=== PATIENT | male | born 1970 | race Caucasian/White ===

== ENCOUNTER → 2016-04-25 | Outpatient (CLI) | payer OTHER ==
[~2016-04-25] MED LIST: ALBUAER19 INH; ASPI81TA28 PO; ATV5 PO; CHOL100010 PO; ESCI10TA17 PO; FEXO1TAB49 PO; FURO20TA PO; GABA300C19 PO; GLUCTAB18 PO; HYDR-5688 PO; MULTTAB58 PO; ORPH100T PO; RXC5 PO
--- NOTE | 2016-04-25 15:46 | DIAGNOSTIC IMAGING REPORT ---
LEFT FOOT 3 VIEWS CLINICAL HISTORY: Left foot pain. FINDINGS: 3 views of the left foot are obtained. No prior studies are available for comparison at the time of dictation. The skeletal structures are well mineralized. No fracture is seen. Minimal degenerative changes seen at the first metatarsophalangeal joint. The joint spaces of the foot are otherwise preserved. A large dorsal calcaneal enthesophyte is noted. A small os trigonum is suspected. There is a large calcification identified posterior to the base of the fifth metatarsal which measures up to 2.0 cm and likely represents a large os peroneum. The overlying soft tissues are within normal limits. IMPRESSION: 1. Minimal degenerative change as above. No acute bony abnormality is seen. 2. There is a large calcification seen posterior to the base of the fifth metatarsal is typical in appearance for a large os peroneum. Electronically signed by: Louie Pleitez M.D. 04/25/2016 3:45 PM Dictated Date/Time: 04/25/2016 3:42 PM
--- NOTE | 2016-04-25 15:51 | DIAGNOSTIC IMAGING REPORT ---
RIGHT FOOT MIN 3 VIEWS ROUTINE CLINICAL HISTORY: Bilateral foot pain. Pain at bilateral fifth metatarsals. COMPARISON: None FINDINGS: The tarsometatarsal joints are intact. 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 No acute fracture or suspicious lesion is identified on since exam. There is mild arthritis of the right first metatarsophalangeal joint. No erosions are identified. IMPRESSION: 1. No acute fracture or dislocation of the right foot. 2. 2.1 cm ossicle along the lateral aspect of the calcaneocuboid articulation consistent with an os peroneum, a congenital finding. Electronically signed by: Niraj Goldberg M.D. 04/25/2016 3:50 PM Dictated Date/Time: 04/25/2016 3:47 PM
== END | disposition home or self-care (01) ==
LOC: C.RAD 15:03
PROVIDERS: ATTEND Internal Medicine Critical Care Medicine
DX: M79.671 Pain in right foot (principal); M79.672 Pain in left foot

== ENCOUNTER → 2016-12-09 | Outpatient (CLI) | payer OTHER | END | disposition home or self-care (01) | LOC: C.PATHSPEC 16:29 | PROVIDERS: ATTEND Dermatology | DX: L57.0 Actinic keratosis (principal) ==

== ENCOUNTER → 2017-02-02 | Outpatient (CLI) | payer OTHER ==
[~2017-02-02] MED LIST changes: +GABA-1218 PO; -GABA300C19 PO
--- NOTE | 2017-02-02 08:18 | DIAGNOSTIC IMAGING REPORT ---
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 Mild medial compartment joint space narrowing is also noted on the left. Small right knee joint effusion. No acute fracture, dislocation, osteochondral defect or intra-articular loose body. IMPRESSION: 1. No acute fracture or dislocation. 2. Small joint effusion with mild tricompartment degenerative changes about the knee. The above report was generated using voice recognition software. It may contain grammatical, syntax or spelling errors. Electronically signed by: Иван Baer M.D. 02/02/2017 8:16 AM Dictated Date/Time: 02/02/2017 8:15 AM
== END | disposition home or self-care (01) ==
LOC: C.RDSM 10:17
PROVIDERS: ATTEND Physician Assistant
DX: M25.561 Pain in right knee (principal); M25.461 Effusion, right knee

== ENCOUNTER → 2017-03-25 | Outpatient (CLI) | payer OTHER ==
--- NOTE | 2017-03-25 10:07 | DIAGNOSTIC IMAGING REPORT ---
L LOWER EXT JOINT WITHOUT CLINICAL HISTORY: 46 years-old Male with LEFT ANKLE PAIN. Chronic left ankle and left hindfoot pain with history of plantar fasciitis. No acute injury reported. COMPARISON: Left foot radiographs 04/25/2016. TECHNIQUE: Multiplanar, multi sequence MRI of the left ankle was performed without contrast. FINDINGS: LATERAL LIGAMENT COMPLEX: The anterior talofibular ligament is intact and demonstrates mild intermediate T2 signal suggesting chronic sprain. The calcaneofibular ligament and posterior talofibular ligaments are intact. SYNDESMOTIC LIGAMENTS: The anterior-inferior tibiofibular ligament, interosseous membrane and posterior-inferior tibiofibular ligaments are intact. DELTOID LIGAMENT COMPLEX: The superficial and deep components of the deltoid ligament are intact. ANTERIOR TENDONS: The tibialis anterior, extensor hallucis longus and extensor digitorum longus tendons are normal in position, morphology and signal. LATERAL TENDONS: The peroneus longus and brevis tendons are intact. There is a large os peroneum noted measuring up to 1.4 x 2.0 cm. Moderate tendinosis of the peroneus longus. MEDIAL TENDONS: The posterior tibialis, flexor digitorum longus and flexor hallucis longus tendons are intact. PLANTAR FASCIA: There is moderate thickening involving the medial cord plantar fascia with mild surrounding edema nicely seen on image 29 series 7 and image 7 series 5. The lateral cord plantar fascia is mildly thickened. There is no evidence of acute plantar fascial tear or plantar fascial nodules. Very small plantar calcaneal enthesophyte. ACHILLES TENDON: The Achilles tendon is normal in position, morphology and signal. No associated bursitis. SINUS TARSI: There is normal fat signal within the sinus tarsi. The interosseous and cervical ligaments are normal. The navicular-calcaneal (spring) ligament iswithout acute abnormality. TARSAL TUNNEL: There are no obstructing lesions within the tarsal tunnel. BONE MARROW: Bone marrow is normal in signal without evidence of fracture, marrow contusion or marrow occupying lesion. IMPRESSION: 1. Moderate acute on chronic plantar fasciitis without evidence of plantar fascial tear. 2. 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 3. No acute fracture or focal bone marrow edema. The above report was generated using voice recognition software. It may contain grammatical, syntax or spelling errors. Electronically signed by: Иван Baer M.D. 03/25/2017 10:06 AM Dictated Date/Time: 03/25/2017 9:57 AM
== END | disposition home or self-care (01) ==
LOC: C.MRI 09:10
PROVIDERS: ATTEND Podiatrist Foot & Ankle Surgery
DX: M72.2 Plantar fascial fibromatosis (principal)

== ENCOUNTER → 2017-05-13 | Outpatient (CLI) | payer OTHER ==
[~2017-05-13] MED LIST changes: -ALBUAER19 INH; -ASPI81TA28 PO; -ATV5 PO; +BYS5 PO; +CETI10TA84 PO; -CHOL100010 PO; -ESCI10TA17 PO; -FEXO1TAB49 PO; -GABA-1218 PO; -GLUCTAB18 PO; -MULTTAB58 PO; -ORPH100T PO; +RANI150T85 PO; -RXC5 PO
[2017-05-13 14:45] LABS: BASO % 0.5 %; BASO ABS # 0.04 K/uL (0-0.2); EOS % 6.9 %; EOS ABS # 0.53 K/uL (0-0.5); HEMOGLOBIN 15.2 g/dL (14.0-18.0); IG# 0.02 K/uL (0.00-0.02); LYMPH % 34.1 %; LYMPH ABS # 2.61 K/uL (1.2-3.4); MEAN CORPUSCULAR HGB CONC 34.5 g/dl (32-36); MEAN PLATELET VOLUME 10.1 fL (7.4-10.4); MONO % 9.1 %; NEUT % 49.1 %; NEUT ABS # 3.76 K/uL (1.4-6.5); PLATELET COUNT 262 K/uL (130-400); RED CELL DISTRIBUTION WIDTH CV 13.2 % (11.5-14.5); RED CELL DISTRIBUTION WIDTH SD 39.6 fL (36.4-46.3); WHITE BLOOD COUNT 7.66 K/uL (4.8-10.8)
[2017-05-13 14:53] LABS: ALBUMIN 3.9 gm/dl (3.4-5.0); ALT/SGPT 28 U/L (12-78); BLOOD UREA NITROGEN 18 mg/dl (7-18); CARBON DIOXIDE 27 mmol/L (21-32); CHOLESTEROL 184 mg/dl (0-200); CREATININE 0.97 mg/dl (0.60-1.40); GLUCOSE 103 mg/dl (70-99); POTASSIUM 3.9 mmol/L (3.5-5.1); SODIUM 139 mmol/L (136-145)
[2017-05-13 14:54] LABS: PTT PATIENT 27.8 SECONDS (21.0-31.0)
[2017-05-13 14:56] LABS: ALKALINE PHOSPHATASE 85 U/L (45-117); AST/SGOT 19 U/L (15-37); LDL CHOLESTEROL CALCULATED 107 mg/dl; TOTAL PROTEIN 7.4 gm/dl (6.4-8.2)
== END | disposition home or self-care (01) ==
LOC: C.LAB1850 12:42
PROVIDERS: ATTEND Internal Medicine Pulmonary Disease
DX: Z01.818 Encounter for other preprocedural examination (principal); J45.909 Unspecified asthma, uncomplicated; R73.09 Other abnormal glucose; E78.5 Hyperlipidemia, unspecified

== ENCOUNTER → 2017-05-18 | Day surgery (SDC) | payer OTHER ==
[2017-04-16 15:23] VITALS: Ht 190.5 cm; Wt 136.4 kg
[~2017-05-18] VITALS: Ht 190.5 cm; Wt 136.4 kg
[~2017-05-18] MED LIST changes: +ATROPINE SULFATE 0.1 MG/ML 5ML SYR IV PRN; +BUPIVACAINE 0.5 % 5 MG/1 ML MPF 30ML VIAL ONE; +BUPIVACAINE 0.5 % 5 MG/1 ML PF 10ML VIAL ONE; +CEFAZOLIN 3000MG IV PUSH 22.5 ML IV SCH; +CLINDAMYCIN 600 MG/54 ML D5W IV SCH; +CLINDAMYCIN 600MG IV SCH; +CLINDAMYCIN PHOS 150 MG/ML 2 ML VIAL ONE; +EpHEDrine SULFATE INJ 50 MG/ML AMP IV PRN; +FENTANYL CITRATE INJ 50 MCG/1 ML 2 ML VIAL IV PRN; +FENTANYL CITRATE INJ 50 MCG/1 ML 2 ML VIAL ONE; +HYDROCODONE/ACETAMIN 5/325MG TAB PO PRN; +LACTATED RINGER'S 1000ML 1,000 ML IV SCH; +LIDOCAINE HCL 1% 20 ML VIAL ONE; +LIDOCAINE HCL 2% 2 ML VIAL (20MG/ML) ONE; +MIDAZOLAM HCL 1 MG/ML 2ML VIAL ONE; +ONDANSETRON INJ 2 MG/ML 2 ML VIAL IV PRN; +PROPOFOL IV EMULSION 10 MG/ML 20 ML VIAL IV ONE; +SODIUM CHLORIDE 0.9% 1000ML 1,000 ML IV SCH
--- NOTE | 2017-05-18 12:59 | History & Physical Bridge - SC ---
H&P Re-Evaluation Bridge Note: I have examined the patient, reviewed the History & Physical and in the interval since the performance of the History & Physical I have noted the following changes of clinical significance: No changes noted
--- NOTE | 2017-05-18 13:31 | [facility] Post Operative Brief Note ---
Immediate Operative Summary Operative Date May 18, 2017. Pre-Operative Diagnosis Painful plantar fasciitis left foot Post-Operative Diagnosis Same as pre-op diagnosis Procedure(s) Performed Instep plantar fasciotomy left foot Surgeon Dr. Lorne Block Manager Wholesale Surgeon(s) None Estimated Blood Loss 2 mL Findings Consistent with Post-Op Diagnosis Specimens None Drains None Anesthesia Type MAC Complication(s) none Disposition Accompanied Pt To Recovery: no Disposition: Recovery Room / PACU
--- NOTE | 2017-05-18 13:35 | Discharge Instructions-SurgCtr ---
Discharge Instructions Date of Service May 18, 2017. Visit Reason for Visit: Plantar Fascial Fibromatosis Discharge Discharge Diagnosis / Problem: Plantar fascial fibromatosis left foot Discharge Goals Goal(s): Decrease discomfort, Improve function Activity Recommendations Activity Limitations: as noted below Shower/Bathe: keep incision dry Weightbearing Status: Left partial Limit weight bearing. Rest, ice, elevate. Anesthesia . Post Anesthesia Instructions: If you have had General Anesthesia or IV Sedation: * Do not drive today. * Resume driving when surgeon permits. * Do not make important decisions or sign legal documents today. * Call surgeon for: 1. Temperature elevations greater than 101 degrees F. 2. Uncontrollable pain. 3. Excessive bleeding. 4. Persistent nausea and vomiting. 5. Medication intolerance (nausea, vomiting or rash). * For nausea and vomiting use only clear liquids such as: tea, soda, bouillon until nausea subsides, then gradually increase diet as tolerated. * If you have any concerns or questions, call your surgeon's office. If physician is unavailable and it is an emergency, call 911 or go to the nearest emergency room. . Diet Recommendations Home Diet: resume previous diet Procedures Procedures Performed: Instep plantar fasciotomy left foot Pending Studies Studies pending at discharge: no Medical Emergencies . Who to Call and When: Medical Emergencies: If at any time you feel your situation is an emergency, please call 911 immediately. . Non-Emergent Contact Non-Emergency issues call your: Primary Care Provider . . "Provider Documentation" section prepared by Lorne Block. . [place] Drug Monitoring Program Search Results: no issues identified
--- NOTE | 2017-05-18 14:02 | Anesthesia Progress Nt - [facility] ---
Anesthesia Post Op Note Date & Time May 18, 2017 at 14:02 Vital Signs Pain Intensity: 5 Vital Signs Past 12 Hours Date Time Temp Pulse Resp B/P (MAP) Pulse Ox O2 Delivery O2 Flow Rate FiO2 05/18/17 11:43 36.7 54 16 145/80 (101) 97 Room Air Notes Mental Status: alert / awake / arousable, participated in evaluation Pt Amnestic to Procedure: Yes Nausea / Vomiting: adequately controlled Pain: adequately controlled Airway Patency, RR, SpO2: stable & adequate BP & HR: stable & adequate Hydration State: stable & adequate Anesthetic Complications: no major complications apparent
--- NOTE | 2017-05-18 14:55 | [facility] Operative Report ---
Operative Report Operative Date May 18, 2017. Pre-Operative Diagnosis Painful plantar fasciitis left foot Post-Operative Diagnosis Same as pre-op diagnosis Procedure(s) Performed Instep plantar fasciotomy left foot Surgeon Dr. Lorne Block Bobtail Driver Surgeon(s) None Estimated Blood Loss 2 mL Specimens None Drains None Anesthesia Type MAC Complication(s) none Disposition no Recovery Room / PACU Indications Patient is a 56 year old male with significant past medical history of hypertension, gastroesophageal reflux disorder, who presented to our office with the chief complaint of left heel pain. Patient has been conservatively treated over the past year without success. He has attempted custom inserts, shoe gear modification, oral anti-inflammatories, stretching exercises, injection therapy, night splints, and physical therapy, all of which have failed to alleviate his symptoms. MRI was obtained of his left foot which demonstrated moderate thickening of the medial band of plantar fascia. Patient is in agreement and requests to proceed with instep plantar fasciotomy left foot. The perioperative indications, planned procedure, possible benefits, risks , complications, and anticipated healing time and management were discussed in detail with the patient. He understands and elects to proceed with surgery at this time. All consents have been signed. No guarantees were made. All questions have been answered to the patient's satisfaction. Medical clearance has been obtained by the patients primary care physician. Description of Procedure Under mild sedation the patient was brought into the Operating Room and placed on the Operating Room table in the supine position. Final verification of the patient, surgery, and limb designation was performed via the time-out procedure. A pneumatic ankle tourniquet was then placed on the patients left ankle. IV local sedation was then initiated by the anesthesia team. Local block was then administered to the operative site of the right foot consisting of 10 cc of a 1:1 mixture of 1% lidocaine plain and 0.5% bupivacaine plain.The left foot was then scrubbed, prepped, and draped in the usual aseptic manner. An Esmarch bandage was utilized to exsanguinate the patients left foot and the pneumatic ankle tourniquet was then inflated to 250 mmHG. Attention was then directed to the plantar aspect of the left foot where a 3 cm transverse incision was made slightly distal to the heel pad as it sloped into the arch following the skin lines. An incision was made using a #15 blade overlying the medial and central band of the plantar fascia. The incision was then deepened until the fascial bands were visualized. The subcutaneous tissue was spread using a hemostat and then a weitlaner retractor was inserted to allow better visualization of the fascial bands. The toes were then held in a dorsiflexed position. Following adequate visualization of the medial and central plantar fascial bands, they were transected using a #15 blade. The surgical site was then explored for any remaining fibers; none were appreciated. The wound was flushed using copious amounts of sterile saline. The skin was reapproximated using #3-0 nylon in a horizontal mattress fashion. A postoperative injection was given near the incision site and the incision was dressed with xeroform, 4x4s and kerlix. At this time the pneumatic ankle tourniquet was deflated and a prompt hyperemic response was noted to all digits of the left foot. The patient tolerated the procedure and anesthesia well and was transferred to the Recovery Room with vital signs stable and vascular status intact. Following a period of postoperative monitoring, the patient will be discharged home with written and postoperative instructions. Patient's intraoperative and postoperative disposition was discussed with the family in the postoperative consultation area. I attest to the content of the Intraoperative Record and any orders documented therein. Any exceptions are noted below.
== END | disposition home or self-care (01) ==
LOC: X.SURG 11:27
PROVIDERS: ATTEND Podiatrist Foot & Ankle Surgery
DX: M72.2 Plantar fascial fibromatosis (principal); M19.90 Unspecified osteoarthritis, unspecified site; J45.909 Unspecified asthma, uncomplicated; E66.8 Other obesity; G47.30 Sleep apnea, unspecified; Z82.61 Family history of arthritis; Z83.79 Family history of other diseases of the digestive system; Z80.42 Family history of malignant neoplasm of prostate; Z82.49 Family history of ischemic heart disease and other diseases of the circulatory system; Z83.3 Family history of diabetes mellitus; Z82.3 Family history of stroke; Z68.37 Body mass index [BMI] 37.0-37.9, adult

== ENCOUNTER → 2017-07-29 | Outpatient (CLI) | payer OTHER ==
[~2017-07-29] MED LIST changes: -ATROPINE SULFATE 0.1 MG/ML 5ML SYR IV PRN; -BUPIVACAINE 0.5 % 5 MG/1 ML MPF 30ML VIAL ONE; -BUPIVACAINE 0.5 % 5 MG/1 ML PF 10ML VIAL ONE; -CEFAZOLIN 3000MG IV PUSH 22.5 ML IV SCH; -CLINDAMYCIN 600 MG/54 ML D5W IV SCH; -CLINDAMYCIN 600MG IV SCH; -CLINDAMYCIN PHOS 150 MG/ML 2 ML VIAL ONE; -EpHEDrine SULFATE INJ 50 MG/ML AMP IV PRN; -FENTANYL CITRATE INJ 50 MCG/1 ML 2 ML VIAL IV PRN; -FENTANYL CITRATE INJ 50 MCG/1 ML 2 ML VIAL ONE; -HYDR-5688 PO; -HYDROCODONE/ACETAMIN 5/325MG TAB PO PRN; -LACTATED RINGER'S 1000ML 1,000 ML IV SCH; -LIDOCAINE HCL 1% 20 ML VIAL ONE; -LIDOCAINE HCL 2% 2 ML VIAL (20MG/ML) ONE; -MIDAZOLAM HCL 1 MG/ML 2ML VIAL ONE; -ONDANSETRON INJ 2 MG/ML 2 ML VIAL IV PRN; -PROPOFOL IV EMULSION 10 MG/ML 20 ML VIAL IV ONE; -SODIUM CHLORIDE 0.9% 1000ML 1,000 ML IV SCH
--- NOTE | 2017-07-29 09:48 | DIAGNOSTIC IMAGING REPORT ---
L WRIST MIN 3 VIEWS ROUTINE, L HAND MIN 3 VIEWS ROUTINE HISTORY: 46 years-old Male M25.539 Pain, wrist [id number] acute left hand and wrist pain COMPARISON: None available TECHNIQUE: 4 views of the left wrist and 3 views of the left hand FINDINGS: WRIST: No acute fracture, dislocation, significant degenerative changes or opaque foreign body. Mild dorsal wrist soft tissue swelling. HAND: Minimal osteoarthritis about the first carpal metacarpal joint. No acute fracture, dislocation or opaque foreign body. Mild dorsal wrist soft tissue swelling. Minimal degenerative changes about the third DIP joint. IMPRESSION: Mild dorsal wrist soft tissue swelling without acute fracture or dislocation. The above report was generated using voice recognition software. It may contain grammatical, syntax or spelling errors. Electronically signed by: Иван Baer M.D. 07/29/2017 9:47 AM Dictated Date/Time: 07/29/2017 9:44 AM
--- NOTE | 2017-07-29 09:49 | DIAGNOSTIC IMAGING REPORT ---
L WRIST MIN 3 VIEWS ROUTINE, L HAND MIN 3 VIEWS ROUTINE HISTORY: 46 years-old Male M25.539 Pain, wrist [id number] acute left hand and wrist pain COMPARISON: None available TECHNIQUE: 4 views of the left wrist and 3 views of the left hand FINDINGS: WRIST: No acute fracture, dislocation, significant degenerative changes or opaque foreign body. Mild dorsal wrist soft tissue swelling. HAND: Minimal osteoarthritis about the first carpal metacarpal joint. No acute fracture, dislocation or opaque foreign body. Mild dorsal wrist soft tissue swelling. Minimal degenerative changes about the third DIP joint. IMPRESSION: Mild dorsal wrist soft tissue swelling without acute fracture or dislocation. The above report was generated using voice recognition software. It may contain grammatical, syntax or spelling errors. Electronically signed by: Иван Baer M.D. 07/29/2017 9:47 AM Dictated Date/Time: 07/29/2017 9:44 AM
== END | disposition home or self-care (01) ==
LOC: C.RAD1850 09:28
PROVIDERS: ATTEND Internal Medicine Pulmonary Disease
DX: M25.532 Pain in left wrist (principal); M79.642 Pain in left hand

== ENCOUNTER 2018-07-17 01:49 | Inpatient (IN) ==
--- NOTE | 2018-07-17 02:11 | Emergency Department Note ---
History of Present Illness General Chief complaint: Swelling/Edema to Extremity Stated complaint: L LEG SWELLING, SOB, CALF PAIN History of Present Illness Maximum Pain Intensity: 2 This 47-year-old presents to the ER complaining of dyspnea and left lower leg swelling Location: Chest and leg Quality: Throbbing Severity: Mild Duration: Past few days Timing: Started a few days ago Context: D-dimer was high and patient came in Modifying factors: better with nothing; worse with nothing Patient had cataract surgery recently. Patient denies chest pain, abdominal pain, fever, chills, diaphoresis. No history of PE or DVT. Patient does not smoke. No recent travel. Home Medications Home Medications Medication Instructions Recorded Confirmed Type Bystolic 10 mg PO QPM 06/04/18 07/17/18 History cetirizine [Zyrtec] 10 mg PO QPM 06/04/18 07/17/18 History escitalopram oxalate [Lexapro] 10 mg PO QPM 06/04/18 07/17/18 History furosemide [Lasix] 20 mg PO QPM 06/04/18 07/17/18 History multivitamin 1 tab PO QPM 06/04/18 07/17/18 History ranitidine HCl 150 mg PO QPM 06/04/18 07/17/18 History Allergies Allergy/AdvReac Type Severity Reaction Status Date / Time adhesive Allergy Unknown BLISTERS Verified 07/17/18 02:27 cefaclor Allergy Unknown RASH Verified 07/17/18 02:27 moxifloxacin Allergy Unknown "BORDERLINE Verified 07/17/18 02:27 ANAPHYLAXIS" Past Med/Surg History Medical History Depression HTN (hypertension) High triglycerides History of kidney stones Idiopathic urticaria Mild asthma EXERCISE INDUCED - RARELY USES PRN INH Osteoarthritis Sleep apnea CPAP Spinal stenosis Tachycardia Surgical History History of anesthesia reaction PT ASPIRATED DURING LITHOTRIPSY; PROCEDURE TERMINATED EARLY History of arthroscopy of left knee History of arthroscopy of right knee History of cataract surgery RT History of colonoscopy History of discectomy C5-6, C6-7 History of lithotripsy History of repair of pyloric stenosis History of surgery RECTAL FISTULA REPAIR History of surgery LT PLANTAR FASCIA RELEASE History of surgery CERVICAL CORPECTOMY History of tonsillectomy and adenoidectomy History of umbilical hernia repair X 2 Hx of fusion of cervical spine C5-C7; DENIES SIGNIFICANT ROM RESTRICTIONS S/P UPPP (uvulopalatopharyngoplasty) Family History Mother Family history of diabetes mellitus Aunt Family history of diabetes mellitus Uncle Family history of diabetes mellitus Grandmother (Maternal) Family history of diabetes mellitus Grandfather (Maternal) Family history of diabetes mellitus Family/Other History of anesthesia reaction NEPHEW - PT UNSURE OF REACTION Social History Preferred Language: Persian Communication Ability: Effective Beliefs That Will Affect Care: None Current Living Situation: Spouse Feels Safe at Home: Yes Smoking Status: Never smoker Second Hand Exposure: No Hx Alcohol Use: No Hx Substance Use: No Review of Systems All systems reviewed & are unremarkable except as noted in HPI & below Physical Exam Vital Signs Vital Signs - 24 hr 07/17/18 01:54 07/17/18 02:20 Temperature 36.9 C Temperature Source Oral Sepsis Recent Fever Within 48 Hours No Sepsis Action Taken by Nursing No Action Required Pulse Rate 48 L 50 L Respiratory Rate 20 Blood Pressure 134/78 Blood Pressure Mean 96 Blood Pressure Position Sitting Pulse Oximetry 97 98 Oxygen Delivery Method Room Air Room Air VITALS: Vitals are noted on the nurse's note and reviewed by myself. Vital signs stable. GENERAL: Pleasant male, in no acute distress, nondiaphoretic, well-developed well-nourished. SKIN: The skin was without rashes, or bruising. There is no tenting of the skin. Capillary reflex less than 2 seconds. HEAD: Normocephalic atraumatic. EARS: External auditory canals clear EYES: Pupils equal round and reactive to light and accommodation. Conjunctivae without injection, sclerae without icterus. NOSE: Patent, turbinates without inflammation or discharge. MOUTH: Mucous membranes moist. Pharynx without erythema or exudate. Uvula midline. Airway patent. Tongue does not deviate. NECK: Supple without nuchal rigidity. No lymphadenopathy. No thyromegaly. Cervical spine is nontender. No JVD. HEART: Regular rate and rhythm LUNGS: Clear to auscultation bilaterally without wheezes, rales or rhonchi. No retractions or accessory muscle use. ABDOMEN: Positive bowel sounds x 4. Normal tympanic percussion. Soft, nontender, without masses or organomegaly. Ny sign negative. No guarding or rebound tenderness. No CVA tenderness MUSCULOSKELETAL: No muscle atrophy noted. Left lower leg slightly erythematous and edematous with some mild calf tenderness. Pedal pulses +2 equal and present bilaterally. NEURO: Patient was alert and oriented to person place and time. Normal sensation to light and sharp touch. No focal neurological deficits. Course Administered Medications Ioversol (Optiray 320 125ml) 118 ml IV ONCE PRN PRN Reason: Interaction Checking Stop: 07/21/18 02:58 Last Admin: 07/17/18 03:00 Dose: 1 ml Documented by: [id number] Medical Decision Making Medical Records Attestation: I reviewed the patient's medical records. Home Medications Current Medication List: was personally reviewed by me Laboratory Data Attestation: I reviewed the patient's lab results. Result diagrams: 07/17/18 02:16 07/17/18 02:16 Lab Results 07/17/18 07/17/18 07/17/18 Range/Units 02:16 02:16 02:17 WBC 6.82 (4.8-10.8) K/uL RBC 4.78 (4.7-6.1) M/uL Hgb 13.9 L (14.0-18.0) g/dL POC Hgb (14.0-18.0) g/dl Hct 40.3 L (42-52) % POC Hct (42-52) % MCV 84.3 (80-100) fL MCH 29.1 (25-34) pg MCHC 34.5 (32-36) g/dL RDW Std Deviation 40.5 (36.4-46.3) fL RDW Coeff of Marcos 13.4 (11.5-14.5) % Plt Count 240 (130-400) K/uL MPV 9.5 (7.4-10.4) fL Immature Gran % (Auto) 0.4 % Neut % (Auto) 51.7 % Lymph % (Auto) 30.6 % Camas % (Auto) 10.6 % Eos % (Auto) 6.3 % Baso % (Auto) 0.4 % Immature Gran # (Auto) 0.03 H (0.00-0.02) K/uL Neut # (Auto) 3.52 (1.4-6.5) K/uL Lymph # (Auto) 2.09 (1.2-3.4) K/uL Camas # (Auto) 0.72 H (0.11-0.59) K/uL Eos # (Auto) 0.43 (0-0.5) K/uL Baso # (Auto) 0.03 (0-0.2) K/uL PT 10.7 (9.0-12.0) Seconds INR 1.0 (0.9-1.1) APTT 27.1 (21.0-31.0) Seconds PTT Ratio 1.0 POC Sodium (135-144) mEq/L Sodium 141 (136-145) mmol/L POC Potassium (3.3-5.0) mEq/L Potassium 3.7 (3.5-5.1) mmol/L POC Chloride (101-112) mEq/L Chloride 108 H (98-107) mmol/L Carbon Dioxide 27 (21-32) mmol/L POC Total CO2 (24-31) mEq/l Anion Gap 6.0 (3-11) POC Anion Gap (16-25) mmol/L POC BUN (7-18) mg/dl BUN 31 H (7-18) mg/dl Creatinine 1.18 (0.6-1.4) mg/dl POC Creatinine (0.6-1.3) mg/dl Est Cr Clr Drug Dosing 117.5 ml/min Est GFR ( Amer) 84.1 Est GFR (Non-Af Amer) 72.5 BUN/Creatinine Ratio 26.3 H (10-20) Glucose 102 H (70-99) mg/dl POC Glucose (other) (70-99) mg/dl Calcium 8.8 (8.5-10.1) mg/dl POC Ioniz Calcium Selin (1.12-1.32) mmol/l Total Bilirubin 0.7 (0.2-1) mg/dl AST 22 (15-37) U/L ALT 32 (12-78) U/L Alkaline Phosphatase 98 (45-117) U/L Troponin I < 0.015 (0-0.045) ng/ml Total Protein 7.2 (6.4-8.2) gm/dl Albumin 3.6 (3.4-5.0) gm/dl Globulin 3.6 (2.5-4.0) gm/dl Albumin/Globulin Ratio 1.0 (0.9-2) 07/17/18 Range/Units 02:24 WBC (4.8-10.8) K/uL RBC (4.7-6.1) M/uL Hgb (14.0-18.0) g/dL POC Hgb 13.6 L (14.0-18.0) g/dl Hct (42-52) % POC Hct 40 L (42-52) % MCV (80-100) fL MCH (25-34) pg MCHC (32-36) g/dL RDW Std Deviation (36.4-46.3) fL RDW Coeff of Marcos (11.5-14.5) % Plt Count (130-400) K/uL MPV (7.4-10.4) fL Immature Gran % (Auto) % Neut % (Auto) % Lymph % (Auto) % Camas % (Auto) % Eos % (Auto) % Baso % (Auto) % Immature Gran # (Auto) (0.00-0.02) K/uL Neut # (Auto) (1.4-6.5) K/uL Lymph # (Auto) (1.2-3.4) K/uL Camas # (Auto) (0.11-0.59) K/uL Eos # (Auto) (0-0.5) K/uL Baso # (Auto) (0-0.2) K/uL PT (9.0-12.0) Seconds INR (0.9-1.1) APTT (21.0-31.0) Seconds PTT Ratio POC Sodium 143 (135-144) mEq/L Sodium (136-145) mmol/L POC Potassium 3.7 (3.3-5.0) mEq/L Potassium (3.5-5.1) mmol/L POC Chloride 104 (101-112) mEq/L Chloride (98-107) mmol/L Carbon Dioxide (21-32) mmol/L POC Total CO2 28 (24-31) mEq/l Anion Gap (3-11) POC Anion Gap 17.0 (16-25) mmol/L POC BUN 29 H (7-18) mg/dl BUN (7-18) mg/dl Creatinine (0.6-1.4) mg/dl POC Creatinine 1.2 (0.6-1.3) mg/dl Est Cr Clr Drug Dosing ml/min Est GFR ( Amer) Est GFR (Non-Af Amer) BUN/Creatinine Ratio (10-20) Glucose (70-99) mg/dl POC Glucose (other) 103 H (70-99) mg/dl Calcium (8.5-10.1) mg/dl POC Ioniz Calcium Selin 1.19 (1.12-1.32) mmol/l Total Bilirubin (0.2-1) mg/dl AST (15-37) U/L ALT (12-78) U/L Alkaline Phosphatase (45-117) U/L Troponin I (0-0.045) ng/ml Total Protein (6.4-8.2) gm/dl Albumin (3.4-5.0) gm/dl Globulin (2.5-4.0) gm/dl Albumin/Globulin Ratio (0.9-2) Imaging Data Attestation: I personally reviewed and interpreted this imaging study as follows: MDM Narrative Prior records/ancillary studies reviewed. Triage Nursing notes reviewed. Additional history obtained from the family. The patient's history was concerning for leg swelling and respiratory difficulties. Differential diagnosis: Etiologies such as infections, DVT, reactive airway disease, pneumonia, pneumothorax, COPD, CHF, cardiac ischemia, pulmonary embolism, musculoskeletal, gastrointestinal, as well as others were entertained. Physical examination: As above. ER treatment provided: Heparin with bolus On reassessment the patient felt better. Diagnostic interpretation by me: The electrocardiogram was negative for acute ischemic or pathologic change. Normal sinus, normal intervals, no acute ST-T wave changes. Impression normal sinus rhythm interpreted by myself I think arrhythmia is unlikely. EKG shows normal sinus rhythm with no interval abnormalities such as QT prolongation or WPW. There are no findings to suggest Brugada syndrome. Cardiac monitoring in the emergency department reveals no tachycardic or bradycardic dysrhythmia. Hypertrophic cardiomyopathy was considered but there are no clear historical elements pointing toward this. EKG is not suggestive. The QRS voltage is not extremely large and there are no suggestive Q waves. The labs revealed negative troponin. Stable platelets D-dimer outpatient was 2200 Imaging studies: If a discrepancy is found between the preliminary and final interpretations of this study, please notify us via our Client Portal at [email or web address] under QA Exams. You can also fax this report with a description of the discrepancy, or include the final report, to our daytime fax number [phone]. If faxing, please indicate the severity of discrepancy using one of the following categories: [ ] 1 - Agree/Informational [ ] 2 - Unlikely to Affect Management [ ] 3 - Possible Eventual Change of Management [ ] 4 - Probable Immediate Change of Management For all other patient related information, please fax us at [phone]. [id number] [facility] Patient: LICHA GUEVARA (Male) Age: 47 MR #: [id number] Status: ER Date: 07/17/18 03:04 Slices: [id number] History: ddimer 2300chest pain Priors: Tech: Vin Frausto @ [phone] Exams: CTA CHEST Contrast: IV Amt: 118 ml optiray Accession Numbers: [id number] Preliminary Findings Only See Final Report For Complete Findings CTA CHEST: There is partial filling defects noted in several subsegmental branches of the right upper lobe, within subsegmental branches of the distal right lower lobe and within proximal and distal subsegmental branches of the left lower lobe. Findings are consistent with multifocal distal pulmonary emboli. No CT evidence for right heart strain. No pericardial effusion. The thoracic aorta is normal in caliber. Paratracheal, subcarinal and hilar lymphadenopathy with left hilar lymph nodes measuring up to 2 cm in short axis diameter. Differential consideration includes reactive process versus lymphoma/lymphoproliferative disorder. However, no axillary or visible intra- abdominal lymphadenopathy identified. Please correlate clinically. Central endobronchial wall thickening may represent reactive airways process no focal consolidation. Scattered dependent ground-glass opacities are presumed dependent atelectasis. No pleural effusion or pneumothorax. Noncalcified 4 mm pulmonary nodule involving the lateral aspect of left upper lobe (series 4; image 157) and 7 mm noncalcified pulmonary nodule noted in the right lower lobe adjacent to the major fissure (series 4; image 114). 4 mm juxtapleural nodule in the right lateral costophrenic margin (series 4; image 88). Follow-up imaging per national criteria guidelines recommended. No acute osseous or significant overlying soft tissue abnormality. Radiologist: Rj Huizar MD PESI Score Age: 47 Male gender: 10 pt History of cancer: 0 Heart failure: 0 Chronic lung disease: 10 pt Pulse =110/min: 0 Systolic blood pressure <100 mmH Respiratory rate =30/min:0 Temperature <36 Celcius:0 Altered mental status: 0 Arterial oxygen saturation <90 percent: 0 Total: 68 Class I Low risk <66 Class II 66 to 85 Class III High risk 86 to 105 Class IV 106 to 125 Class V >125 Consultation: A consultation was placed with the hospitalist. The case was discussed and diagnostics were reviewed. The patient was evaluated in the ER for further treatment. Medicine request heparin with bolus. This appears to be consistent with PEs. Heparin was ordered. Hypercoagulable work-up was ordered. Results reviewed with patient and all questions were answered. Patient will be admitted to medicine for treatment for PEs. By the evaluation outlined above emergent etiologies such as CHF, cardiac ischemia, reactive airway disease, pneumonia, pneumothorax, musculoskeletal, serious bacterial infections, as well as others were deemed relatively unlikely. The pt informed about the findings as listed above. All questions were answered and pleased with the treatment. Case reviewed with my attending The chart was completed utilizing [email or web address] Speech voice recognition software. Grammatical errors, random word insertions, pronoun errors, and incomplete sentences are an occassional consequence of this system due to software limitations, ambient noise, and hardware issues. Any formal questions or concerns about the content, text, or information contained within the body of this dictation should be directly addressed to the physician assistant store manager trainee for clarification. Impression & Plan Pulmonary embolism Critical Care Time I have personally spent greater than 30 minutes of critical care time in the direct management of this patient. This includes bedside care, interpretation of diagnostic studies, and testing, discussion with consultants, patient, and family members, and other required patient management activities. This 30 minutes is in excess of all separately billable procedures. Critical Care Time: Yes Total Critical Care Time: 30 Discharge Plan Visit Data Chief Complaint: Swelling/Edema to Extremity Stated Complaint: L LEG SWELLING, SOB, CALF PAIN ED Provider: Jacqueline Holt ED Midlevel Provider: Martina Galarza Discharge Problem: Pulmonary embolism Patient Disposition: Admitted As Inpatient Condition: Good Forms Stand Alone Forms: My [facility] Prescriptions Prescriptions: No Action multivitamin Tablet 1 tab PO QPM RF: 0 cetirizine [Zyrtec] 10 mg Tablet 10 mg PO QPM RF: 0 ranitidine HCl 150 mg Tablet 150 mg PO QPM RF: 0 furosemide [Lasix] 20 mg Tablet 20 mg PO QPM RF: 0 escitalopram oxalate [Lexapro] 10 mg Tablet 10 mg PO QPM RF: 0 Bystolic 10 mg Tablet 10 mg PO QPM RF: 0 Referrals Referrals: Destin Kramer MD [Primary Care Provider] - Discharge Problem: Pulmonary embolism Qualifiers: Pulmonary embolism type: unspecified Chronicity: acute Acute cor pulmonale presence: without acute cor pulmonale Qualified Code(s): I26.99 - Other pulmonary embolism without acute cor pulmonale
[2018-07-17 02:26] LABS: Basophils # (auto) 0.03 K/uL (0-0.2); Basophils % (auto) 0.4 %; Eosinophils # (auto) 0.43 K/uL (0-0.5); Eosinophils % (auto) 6.3 %; Hematocrit (blood only) 40.3 % (42-52); Hemoglobin 13.9 g/dL (14.0-18.0); Immature Granulocytes # (auto) 0.03 K/uL (0.00-0.02); Immature Granulocytes % (auto) 0.4 %; Lymphocytes # (auto) 2.09 K/uL (1.2-3.4); Lymphocytes % (auto) 30.6 %; Mean Corpuscular Hgb Conc 34.5 g/dL (32-36); Mean Corpuscular Volume 84.3 fL (80-100); Mean Platelet Volume 9.5 fL (7.4-10.4); Monocytes # (auto) 0.72 K/uL (0.11-0.59); Monocytes % (auto) 10.6 %; Neutrophils # (auto) 3.52 K/uL (1.4-6.5); Neutrophils % (auto) 51.7 %; Platelet Count 240 K/uL (130-400); RDW Coefficient of Variation 13.4 % (11.5-14.5); RDW Standard Deviation 40.5 fL (36.4-46.3); Red Blood Count 4.78 M/uL (4.7-6.1); White Blood Count 6.82 K/uL (4.8-10.8)
[2018-07-17 02:37] LABS: iSTAT Creatinine 1.2 mg/dl (0.6-1.3); iSTAT Hemoglobin 13.6 g/dl (14.0-18.0); iSTAT Ionized Calcium 1.19 mmol/l (1.12-1.32); iSTAT Potassium 3.7 mEq/L (3.3-5.0)
[2018-07-17] MEDS ORDERED: OPTIRAY 320 125ml IV PRN (02:59)
[2018-07-17 03:00] LABS: Alanine Aminotransferase 32 U/L (12-78); Albumin Level 3.6 gm/dl (3.4-5.0); Aspartate Aminotransferase 22 U/L (15-37); BUN Creatinine Ratio 26.3 (10-20); Blood Urea Nitrogen 31 mg/dl (7-18); Calcium 8.8 mg/dl (8.5-10.1); Carbon Dioxide 27 mmol/L (21-32); Chloride 108 mmol/L (98-107); Creatinine Clr Calc Pharmacy 117.5 ml/min; Est GFR (African American) 84.1; Est GFR (Non-African American) 72.5; Glucose 102 mg/dl (70-99); Potassium 3.7 mmol/L (3.5-5.1); Sodium 141 mmol/L (136-145)
[2018-07-17 03:05] LABS: Alkaline Phosphatase 98 U/L (45-117); Bilirubin,Total 0.7 mg/dl (0.2-1); Globulin 3.6 gm/dl (2.5-4.0); Total Protein 7.2 gm/dl (6.4-8.2); Troponin I < 0.015 ng/ml (0-0.045)
[2018-07-17 03:41] LABS: Partial Thromboplastin Time 27.1 Seconds (21.0-31.0); Prothrombin Time 10.7 Seconds (9.0-12.0)
[2018-07-17] MEDS ORDERED: HEPARIN 25000 UNIT/500 ML D5W IV ONE (04:05)
[2018-07-17] MEDS ORDERED: Heparin BOLUS **ED Use Only IV STA (04:06)
[2018-07-17] MEDS ORDERED: HEPARIN SOD (PORCINE) 1000 UNIT/ML 10 ML VIAL ONE (04:06)
--- NOTE | 2018-07-17 04:11 | History & Physical Report ---
Date of Service July 17, 2018 Assessment & Plan (1) Pulmonary embolism: Patient with occlusive thrombus of peritoneal and posterior tibial veins as well as multifocal distal pulmonary emboli. He is hemodynamically stable, no respiratory distress, adequate oxygenation on room air, no evidence of right heart strain on EKG or CT. No prior DVT/PE. No trauma or immobility. Patient had cataract surgery performed prior to leg swelling, however, not sure I would definitively call this a "provoked" DVT. Patient has lymphadenopathy in the chest as well as in the femoral area as well, suggested to be reactive. This may be the case, however, concerning for malignancy in setting of a new DVT/PE, anemia. Patient does not endorse any Type B symptoms of malignancy. -Admit to medical floor -Heparin bolus and gtt initiated in ER to continue on floor -Case management consult to assist with NOAC choice -Hypercoag workup sent Present on Admission?: Yes (2) Lymphadenopathy: As mentioned above, patient with LAD noted in chest as well as femoral. May be reactive, however, concern for malignancy in setting of new DVT/PE -Consider surgical consult for lymph node biopsy Present on Admission?: Yes (3) Anemia: Patient with normochromic/normocytic anemia, Hg of 13.9, Hct of 40.3. This is slightly down from prior values of 14.2 and 42.9, respectively on 12/18/17. No active bleeding -Continue to monitor Present on Admission?: Yes (4) Hypertension: Blood pressure well controlled on current medication regimen. Patient is bradycardic at baseline on Bystolic. Denies dizziness, syncope, confusion. -Continue Bystolic -Continue Lasix -Continue to monitor Present on Admission?: Yes (5) Depression: Chronic. Stable -Continue Lexapro Present on Admission?: Yes (6) BRICE on CPAP: CPAP qHS F/E/N - Heplock. Monitor electroltyes and replete as needed, regular diet as tolerated Ppx - Heparin gtt as above. Continue Ranitidine daily at home dose Code - Full per discussion with patient Dispo - Admit to medical floor History of Present Illness Chief Complaint: Pulmonary emboli Primary Care Provider: Destin Kramer MD 47yo C male presenting with bilateral PEs. Patient had cataract surgery in mid June. Shortly after he began experiencing pain in the left posterior calf with associated leg swelling. He had a d-dimer performed today which was positive at 2320. He has some mild chest discomfort and has noted more dyspnea with exertion lately. No dizziness/syncope/palpitations. Patient took 364mg of ASA during the course of the day. No additional complaints at this time. No history of prior clots ER Course: Heparin bolus and gtt Allergies Allergy/AdvReac Type Severity Reaction Status Date / Time adhesive Allergy Unknown BLISTERS Verified 07/17/18 02:27 cefaclor Allergy Unknown RASH Verified 07/17/18 02:27 moxifloxacin Allergy Unknown "BORDERLINE Verified 07/17/18 02:27 ANAPHYLAXIS" Home Medications Home Medications Medication Instructions Recorded Confirmed Type Bystolic 10 mg PO QPM 06/04/18 07/17/18 History cetirizine [Zyrtec] 10 mg PO QPM 06/04/18 07/17/18 History escitalopram oxalate [Lexapro] 10 mg PO QPM 06/04/18 07/17/18 History furosemide [Lasix] 20 mg PO QPM 06/04/18 07/17/18 History multivitamin 1 tab PO QPM 06/04/18 07/17/18 History ranitidine HCl 150 mg PO QPM 06/04/18 07/17/18 History Past Med/Surg History Medical History Depression HTN (hypertension) High triglycerides History of kidney stones Idiopathic urticaria Mild asthma EXERCISE INDUCED - RARELY USES PRN INH Osteoarthritis Sleep apnea CPAP Spinal stenosis Tachycardia Surgical History History of anesthesia reaction PT ASPIRATED DURING LITHOTRIPSY; PROCEDURE TERMINATED EARLY History of arthroscopy of left knee History of arthroscopy of right knee History of cataract surgery RT History of colonoscopy History of discectomy C5-6, C6-7 History of lithotripsy History of repair of pyloric stenosis History of surgery RECTAL FISTULA REPAIR History of surgery LT PLANTAR FASCIA RELEASE History of surgery CERVICAL CORPECTOMY History of tonsillectomy and adenoidectomy History of umbilical hernia repair X 2 Hx of fusion of cervical spine C5-C7; DENIES SIGNIFICANT ROM RESTRICTIONS S/P UPPP (uvulopalatopharyngoplasty) Family History Mother Family history of diabetes mellitus Aunt Family history of diabetes mellitus Uncle Family history of diabetes mellitus Grandmother (Maternal) Family history of diabetes mellitus Grandfather (Maternal) Family history of diabetes mellitus Family/Other History of anesthesia reaction NEPHEW - PT UNSURE OF REACTION Social History Preferred Language: Welsh Communication Ability: Effective Beliefs That Will Affect Care: None Current Living Situation: Spouse Feels Safe at Home: Yes Smoking Status: Never smoker Second Hand Exposure: No Hx Alcohol Use: No Hx Substance Use: No Review of Systems Review of Systems: All systems reviewed & are unremarkable except as noted in HPI & below Patient denies fevers, chills, night sweats, weight loss Patient denies abdominal pain, nausea, vomiting, diarrhea or constipation Physical Exam Physical Exam: General: patient resting comfortably, NAD, non-toxic in appearance, AA&O x 4 Skin: warm, dry, intact, no rashes or lesions HEENT: NC/AT, PERRL, EOMI, anicteric sclera, conjunctiva without injection, external ear normal to inspection and nontender, nares patent, moist mucus membranes, dentition intact, no oropharyngeal lesions, neck supple, trachea midline, no LAD, no thyromegaly, no JVD Heart: +S1/S2, regular, bradycardic at 47bpm, no m/r/g Lungs: equal air entry bilaterally, no rales/rhonchi/wheezes Abd: +BS, soft, NT/ND, no masses/organomegaly/ascites Ext: warm, 2+ pulses in UE/LE bilaterally, no clubbing/cyanosis, trace pitting edema of bilateral LE, L > R, tenderness of left posterior calf Neuro: nonfocal Results & Data Vital Signs (Past 12 Hours) Vital Signs Temp Pulse Resp BP Pulse Ox 07/17/18 02:20 50 L 98 07/17/18 01:54 36.9 C 48 L 20 134/78 97 Laboratory Results Lab Results 07/17/18 07/17/18 07/17/18 Range/Units 02:16 02:16 02:17 WBC 6.82 (4.8-10.8) K/uL RBC 4.78 (4.7-6.1) M/uL Hgb 13.9 L (14.0-18.0) g/dL POC Hgb (14.0-18.0) g/dl Hct 40.3 L (42-52) % POC Hct (42-52) % MCV 84.3 (80-100) fL MCH 29.1 (25-34) pg MCHC 34.5 (32-36) g/dL RDW Std Deviation 40.5 (36.4-46.3) fL RDW Coeff of Marcos 13.4 (11.5-14.5) % Plt Count 240 (130-400) K/uL MPV 9.5 (7.4-10.4) fL Immature Gran % (Auto) 0.4 % Neut % (Auto) 51.7 % Lymph % (Auto) 30.6 % [place] % (Auto) 10.6 % Eos % (Auto) 6.3 % Baso % (Auto) 0.4 % Immature Gran # (Auto) 0.03 H (0.00-0.02) K/uL Neut # (Auto) 3.52 (1.4-6.5) K/uL Lymph # (Auto) 2.09 (1.2-3.4) K/uL [place] # (Auto) 0.72 H (0.11-0.59) K/uL Eos # (Auto) 0.43 (0-0.5) K/uL Baso # (Auto) 0.03 (0-0.2) K/uL PT 10.7 (9.0-12.0) Seconds INR 1.0 (0.9-1.1) APTT 27.1 (21.0-31.0) Seconds PTT Ratio 1.0 POC Sodium (135-144) mEq/L Sodium 141 (136-145) mmol/L POC Potassium (3.3-5.0) mEq/L Potassium 3.7 (3.5-5.1) mmol/L POC Chloride (101-112) mEq/L Chloride 108 H (98-107) mmol/L Carbon Dioxide 27 (21-32) mmol/L POC Total CO2 (24-31) mEq/l Anion Gap 6.0 (3-11) POC Anion Gap (16-25) mmol/L POC BUN (7-18) mg/dl BUN 31 H (7-18) mg/dl Creatinine 1.18 (0.6-1.4) mg/dl POC Creatinine (0.6-1.3) mg/dl Est Cr Clr Drug Dosing 117.5 ml/min Est GFR ( Amer) 84.1 Est GFR (Non-Af Amer) 72.5 BUN/Creatinine Ratio 26.3 H (10-20) Glucose 102 H (70-99) mg/dl POC Glucose (other) (70-99) mg/dl Calcium 8.8 (8.5-10.1) mg/dl POC Ioniz Calcium Eslin (1.12-1.32) mmol/l Total Bilirubin 0.7 (0.2-1) mg/dl AST 22 (15-37) U/L ALT 32 (12-78) U/L Alkaline Phosphatase 98 (45-117) U/L Troponin I < 0.015 (0-0.045) ng/ml Total Protein 7.2 (6.4-8.2) gm/dl Albumin 3.6 (3.4-5.0) gm/dl Globulin 3.6 (2.5-4.0) gm/dl Albumin/Globulin Ratio 1.0 (0.9-2) 07/17/18 Range/Units 02:24 WBC (4.8-10.8) K/uL RBC (4.7-6.1) M/uL Hgb (14.0-18.0) g/dL POC Hgb 13.6 L (14.0-18.0) g/dl Hct (42-52) % POC Hct 40 L (42-52) % MCV (80-100) fL MCH (25-34) pg MCHC (32-36) g/dL RDW Std Deviation (36.4-46.3) fL RDW Coeff of Marcos (11.5-14.5) % Plt Count (130-400) K/uL MPV (7.4-10.4) fL Immature Gran % (Auto) % Neut % (Auto) % Lymph % (Auto) % [place] % (Auto) % Eos % (Auto) % Baso % (Auto) % Immature Gran # (Auto) (0.00-0.02) K/uL Neut # (Auto) (1.4-6.5) K/uL Lymph # (Auto) (1.2-3.4) K/uL [place] # (Auto) (0.11-0.59) K/uL Eos # (Auto) (0-0.5) K/uL Baso # (Auto) (0-0.2) K/uL PT (9.0-12.0) Seconds INR (0.9-1.1) APTT (21.0-31.0) Seconds PTT Ratio POC Sodium 143 (135-144) mEq/L Sodium (136-145) mmol/L POC Potassium 3.7 (3.3-5.0) mEq/L Potassium (3.5-5.1) mmol/L POC Chloride 104 (101-112) mEq/L Chloride (98-107) mmol/L Carbon Dioxide (21-32) mmol/L POC Total CO2 28 (24-31) mEq/l Anion Gap (3-11) POC Anion Gap 17.0 (16-25) mmol/L POC BUN 29 H (7-18) mg/dl BUN (7-18) mg/dl Creatinine (0.6-1.4) mg/dl POC Creatinine 1.2 (0.6-1.3) mg/dl Est Cr Clr Drug Dosing ml/min Est GFR ( Amer) Est GFR (Non-Af Amer) BUN/Creatinine Ratio (10-20) Glucose (70-99) mg/dl POC Glucose (other) 103 H (70-99) mg/dl Calcium (8.5-10.1) mg/dl POC Ioniz Calcium Selin 1.19 (1.12-1.32) mmol/l Total Bilirubin (0.2-1) mg/dl AST (15-37) U/L ALT (12-78) U/L Alkaline Phosphatase (45-117) U/L Troponin I (0-0.045) ng/ml Total Protein (6.4-8.2) gm/dl Albumin (3.4-5.0) gm/dl Globulin (2.5-4.0) gm/dl Albumin/Globulin Ratio (0.9-2) Diagnostic Findings CTA Chest - Per STAT-Rad: There is partial filling defects noted in several subsegmental branches of the right upper loge an ddistal right lower lobe and within proximal and distal subsegmental branches of the LLL. Findings consistent with multifocal distal PE. No CT evidence for right heart strain. No pericardial effusion. Paratracheal, subcarinal and hilar LAD with left hilar LN measuring up to 2cm in short axis diameter. Ddx includes reactive process vers lymphoma/lymphoproliferative disorder. No axillary or intra-abdominal LAD identified. Correlate clinically. Central endobronchial wall thickening may re present reactive airways process. No focal consolidation. Scattered dependent ground-glass opacities are presumed dependent atelectasis. No pleural effusions of PTX. Noncalcified 4mm pulmonary nodule of the lateral aspect of ALEX and 7mm noncalcified pulmonary nodule in RLL adjacent to the major fissure. 4mm juxtapleural nodule in the right lateral costophrenic margin. Followup imaging per national criteria guideline recommended. No acute osseous or significant overlying soft tissue abnormality. Venous doppler - Per STAT-Rad: Occlusive thrombus in the peritoneal and one fo the posterior tibial veins. Thrombus extends superiorly to involve the mid to inferior popliteal vein. The superior margin of the thrombus is partially occlusive with a rounded meniscus type appearance. No extension to involve the left common femoral or femoral veins is noted. No evidence for DVT in the right. Reactive left inguinal lymph nodes. ECG Additional Comments: The study shows sinus bradycardia at 44bpm, SI=011, BDL=043, ZWl=671, nonspecific TW changes Code Status & VTE Plan Code Status FULL VTE Prophylaxis Plan VTE Prophylaxis will be ordered: Yes Critical Care Time Critical Care Time: No (1) Anemia Anemia type: unspecified type Qualified Code(s): D64.9 - Anemia, unspecified (2) Depression Depression Type: unspecified Qualified Code(s): F32.9 - Major depressive disorder, single episode, unspecified (3) Pulmonary embolism Acute cor pulmonale presence: without acute cor pulmonale Chronicity: acute Pulmonary embolism type: unspecified Qualified Code(s): I26.99 - Other pulmonary embolism without acute cor pulmonale (4) Hypertension Hypertension type: essential hypertension Qualified Code(s): I10 - Essential (primary) hypertension
[2018-07-17] MEDS: Heparin Adult STANDARD Wt-Based Dextrose 5% 25,000 units/500 mL IV SCH ×2 (04:48→17:34)
--- NOTE | 2018-07-17 06:22 | Ultrasound Report ---
US venous doppler LE BI HISTORY: Pain. Edema. swelling, recent OR COMPARISON STUDY: None. FINDINGS: Findings consistent with thrombus within the mid to distal popliteal vein. Involvement of t he peroneal veins in one of the Posterior tibial vein is also noted. IMPRESSION: Acute deep venous thrombosis left leg. The above report was generated using voice recognition software. It may contain grammatical, syntax or spelling errors. Electronically signed by: Kamran Esparza M.D. 07/17/2018 6:20 AM
--- NOTE | 2018-07-17 06:35 | CT Scan Report ---
CT angio chest PE protocol CT DOSE: 709.34 mGy.cm HISTORY: Pain. Dyspnea. ddimer 2200, sob, ? PE TECHNIQUE: Multiaxial CT images of the chest were performed following the intravenous administration of contrast to evaluate the pulmonary arteries. Maximal intensity projection images were also obtaine d. A dose lowering technique was utilized adhering to the principles of ALARA. COMPARISON STUDY: None. FINDINGS: The thoracic aorta is normal course and caliber. Pulmonary vasculature demonstrates several second and third order filling defects in the peripheral l katie regions bilaterally. No evidence for main central or saddle pulmonary embolus. Moderate mediastinal and hilar adenopathy. Pretracheal nodes measuring up to 1.7 cm. Bilateral hilar nodes measure to 1.6 cm. Subcarinal lymph nodes measure up to 2 cm. Evaluation of the lung parenchyma shows several small scattered nodules. Right base contains a 5 mm n odule right right infrahilar nodule measures 7 mm. Left midlung nodule image 63 measures 5 mm. Severa l additional 2 to 4 mm nodules are present bilaterally. There are no focal or consolidative infiltrative changes. IMPRESSION: 1. Study is positive for bilateral pulmonary emboli. 2. Moderate mediastinal and hilar adenopathy. 3. Scattered parenchymal nodules as discussed. 4. The mediastinal, hilar, and parenchymal findings should be closely followed to exclude a possibili ty of a density such as lymphoma The above report was generated using voice recognition software. It may contain grammatical, syntax or spelling errors. Electronically signed by: Kamran Esparza M.D. 07/17/2018 6:34 AM
[2018-07-17 07:29] LABS: Magnesium 2.1 mg/dl (1.8-2.4)
[2018-07-17 10:59] LABS: Partial Thromboplastin Ratio 1.9
[2018-07-17 11:04] LABS: Partial Thromboplastin Time 51.3 Seconds (21.0-31.0)
[2018-07-17] MEDS: ACETAMINOPHEN 325 MG TAB PO PRN (16:14)
[2018-07-17] MEDS: ESCITALOPRAM OXALATE 10 MG TAB PO SCH (20:25)
[2018-07-17] MEDS: FUROSEMIDE 20 MG TAB PO SCH (20:25)
[2018-07-17] MEDS: NEBIVOLOL HCL 5 MG TAB PO SCH (20:26)
[2018-07-17] MEDS: CETIRIZINE HCL 10 MG TABLET PO SCH (20:26)
--- NOTE | 2018-07-17 22:12 | Consultation Report ---
DATE OF CONSULTATION: 07/17/2018 REASON FOR CONSULTATION: Mediastinal lymphadenopathy. 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 Dev was in his usual state of health until a couple of weeks ago when he started noticing some swelling in his left lower extremity. He attended his daughter's graduation and walked around [facility] during much of her graduation and noted a "twinge" in his chest and was short of breath, which is unusual for him. Six months ago, Dev was in a walking program where he walked quite a bit and has lost some weight and felt good. He has not been walking as much as of late. The patient had a D-dimer drawn, it was seen to be elevated. He presented to the hospital, has been admitted, and found to have left lower extremity tibial, peroneal, and distal popliteal vein thrombosis. He also underwent a CTA and was found to have some evidence of distal bilateral pulmonary emboli. The patient's CT scan was also significant for marked mediastinal adenopathy. He also has some very small lung nodules, the largest of which measured 7 mm. The patient does not smoke cigarettes. He does not have a cough. He states that he has had night sweats once or twice a month for the last several months which are fairly significant. His weight has been stable. He has no productive cough. He has not had shortness of breath until the episode described above. PAST MEDICAL HISTORY: 1. The patient is a lifetime nonsmoker. 2. Hypertension. 3. Hypertriglyceridemia. 4. Nephrolithiasis. 5. Exercise-induced asthma. 6. Osteoarthritis. 7. Sleep apnea. 8. Spinal stenosis. 9. Recurrent tachycardias. PAST SURGICAL HISTORY: 1. Recent cataract extraction with lens implant. 2. History of fusion of cervical spine. 3. UPPP. 4. History of umbilical hernia repair. 5. Tonsillectomy and adenoidectomy. 6. Plantar fascial release. 7. Repair of rectal fistula. 8. Repair of pyloric stenosis. 9. Lithotripsy. 10. Bilateral knee arthroscopies. MEDICATIONS: 1. Bystolic. 2. Zyrtec. 3. Zantac. 4. Multivitamins. 5. Lasix. 6. Lexapro. ALLERGIES: 1. ADHESIVE TAPE. 2. CECLOR. 3. MOXIFLOXACIN. SOCIAL HISTORY: The patient lives in [place] with his . His daughter just graduated. He does not smoke cigarettes. He is independent in his activities of daily living. He does not use alcohol. FAMILY MEDICAL HISTORY: There is a history of diabetes mellitus in his grandparents, mother, and aunts and uncles. REVIEW OF SYSTEMS: The patient denies any GI or complaints. He has had no neurologic problems. He has had no skin breakdown. He has mild edema in his left lower extremity. He has not had tachycardias, but he has had the chest pain discussed above. He did undergo a stress echocardiogram last year. His vision has been better with his cataract extraction. He has had no hearing impairment. PHYSICAL EXAMINATION: GENERAL: Jamel is a large man standing 6 feet 3 inches tall, weighing in excess of 300 pounds. HEENT: His extraocular movements are intact. He has lens implants. He has no nasolabial flattening. His tongue is midline. His teeth are in good repair. NECK: Thick, but supple. He has no carotid bruits or lymphadenopathy. LUNGS: Actually clear. I do not really hear any wheezing or rhonchi. HEART: He has a regular rate and rhythm of his heart. ABDOMEN: A bit protuberant but soft, nontender. No evidence of organomegaly. EXTREMITIES: He has excellent peripheral pulses. I do not really see edema today, but he apparently had some pretibial edema last night. He has a negative Homans' this morning, but apparently has had some issues with pain in his left lower extremity recently. NEUROLOGIC: He is completely intact. ASSESSMENT AND PLAN: Marked mediastinal adenopathy. I am going to offer him an endobronchial ultrasound on Thursday. I am going to keep him in the hospital on heparin as there is not a good way to anticoagulate him. We discussed the possibilities including lymphoma, sarcoidosis, or other connective tissue disorder, and I told him there is a very low level probability of this being a metastatic cancer. He understands. We will get this set up for 07/19/2018.
[2018-07-18] MEDS: Heparin Adult STANDARD Wt-Based Dextrose 5% 25,000 units/500 mL IV SCH ×2 (05:21→19:59)
[2018-07-18 07:50] LABS: Basophils # (auto) 0.02 K/uL (0-0.2); Basophils % (auto) 0.3 %; Eosinophils # (auto) 0.45 K/uL (0-0.5); Eosinophils % (auto) 5.9 %; Hematocrit (blood only) 40.4 % (42-52); Hemoglobin 14.4 g/dL (14.0-18.0); Immature Granulocytes # (auto) 0.05 K/uL (0.00-0.02); Immature Granulocytes % (auto) 0.7 %; Lymphocytes # (auto) 1.99 K/uL (1.2-3.4); Lymphocytes % (auto) 25.9 %; Mean Corpuscular Hgb Conc 35.6 g/dL (32-36); Mean Corpuscular Volume 82.8 fL (80-100); Mean Platelet Volume 9.2 fL (7.4-10.4); Monocytes # (auto) 0.85 K/uL (0.11-0.59); Monocytes % (auto) 11.1 %; Neutrophils # (auto) 4.32 K/uL (1.4-6.5); Neutrophils % (auto) 56.1 %; Platelet Count 231 K/uL (130-400); RDW Coefficient of Variation 13.5 % (11.5-14.5); RDW Standard Deviation 40.6 fL (36.4-46.3); Red Blood Count 4.88 M/uL (4.7-6.1); White Blood Count 7.68 K/uL (4.8-10.8)
[2018-07-18 08:12] LABS: Partial Thromboplastin Ratio 1.7
[2018-07-18 08:16] LABS: BUN Creatinine Ratio 17.9 (10-20); Calcium 8.8 mg/dl (8.5-10.1); Creatinine Clr Calc Pharmacy 126.7 ml/min; Est GFR (African American) 92.5; Est GFR (Non-African American) 79.8; Potassium 4.1 mmol/L (3.5-5.1)
[2018-07-18 08:45] LABS: Partial Thromboplastin Time 46.8 Seconds (21.0-31.0)
--- NOTE | 2018-07-18 10:01 | Progress Note ---
DATE: 07/18/2018 Jamel Walker was evaluated this morning on 07/18/2018. He has had an uneventful night. He denies chest pain or shortness of breath. He has been ambulating in the hallway. His swelling is improved in his left leg. I have discussed his case with Dr. Lomax. In my opinion, an inferior vena cava filter is not indicated. The clot burden in the mid and distal popliteal is not extensive. In addition, there are no contraindications to anticoagulation. Anticoagulation can be started tomorrow after we do the endobronchial ultrasound. I had a long talk with Mr. Walker about this and we will set this up for tomorrow afternoon. We will stop his heparin drip in the morning.
[2018-07-18] MEDS: PSYLLIUM 58.6% POWDER PACKET PO SCH (11:32)
--- NOTE | 2018-07-18 22:36 | Hospitalist Progress Note ---
Date of Service July 18, 2018 Assessment & Plan (1) Pulmonary embolism: Patient with occlusive thrombus of peritoneal and posterior tibial veins as well as multifocal distal pulmonary emboli. He is hemodynamically stable, no respiratory distress, adequate oxygenation on room air, no evidence of right heart strain on EKG or CT. No prior DVT/PE. No trauma or immobility. Patient had cataract surgery performed prior to leg swelling, however, not sure I would definitively call this a "provoked" DVT. Patient has lymphadenopathy in the chest as well as in the femoral area as well, suggested to be reactive. This may be the case, however, concerning for malignancy in setting of a new DVT/PE, anemia. Patient does not endorse any Type B symptoms of malignancy. -Admit to medical floor -Heparin bolus and gtt initiated in ER to continue on floor -Case management consult to assist with NOAC choice -Hypercoag workup sent -Plan to switch to NOAC after procedure has been completed. Discuss with Dr. Abraham if can be discharged on Thursday or Thursday. (2) Lymphadenopathy: As mentioned above, patient with LAD noted in chest as well as femoral. May be reactive, however, concern for malignancy in setting of new DVT/PE -Consulted Dr. Ruiz for biopsy as lymph nodes are above 1 cm. Possibly sarcoidosis. (3) Anemia: Patient with normochromic/normocytic anemia, Hg of 13.9, Hct of 40.3. This is slightly down from prior values of 14.2 and 42.9, respectively on 12/18/17. No active bleeding -Continue to monitor (4) Hypertension: Blood pressure well controlled on current medication regimen. Patient is bradycardic at baseline on Bystolic. Denies dizziness, syncope, confusion. -Continue Bystolic -Continue Lasix -Continue to monitor (5) Depression: Chronic. Stable -Continue Lexapro (6) BRICE on CPAP: CPAP qHS F/E/N - Heplock. Monitor electroltyes and replete as needed, regular diet as tolerated Ppx - Heparin gtt as above. Continue Ranitidine daily at home dose Code - Full per discussion with patient Spent 25 minutes in management of patient. Subjective 47 yo male reports feeling well. He has no complaints. Review of Systems Review of Systems: All systems reviewed & are unremarkable except as noted in HPI & below Physical Exam Physical Exam: General: patient resting comfortably, NAD, non-toxic in appearance, AA&O x 4 Skin: warm, dry, intact, no rashes or lesions HEENT: NC/AT, PERRL, EOMI, anicteric sclera, conjunctiva without injection, external ear normal to inspection and nontender, nares patent, moist mucus membranes, dentition intact, no oropharyngeal lesions, neck supple, trachea midline, no LAD, no thyromegaly, no JVD Heart: +S1/S2, regular, bradycardic at 47bpm, no m/r/g Lungs: equal air entry bilaterally, no rales/rhonchi/wheezes Abd: +BS, soft, NT/ND, no masses/organomegaly/ascites Ext: warm, 2+ pulses in UE/LE bilaterally, no clubbing/cyanosis, trace pitting edema of bilateral LE, L > R, tenderness of left posterior calf Neuro: nonfocal Results & Data Vital Signs (Past 12 Hours) Vital Signs Temp Pulse Pulse Resp BP Pulse Ox 07/18/18 19:53 36.7 C 49 L 17 120/72 97 07/18/18 16:03 36.6 C 46 L 17 121/70 94 07/18/18 16:00 57 L (1) Anemia Anemia type: unspecified type Qualified Code(s): D64.9 - Anemia, unspecified (2) Depression Depression Type: unspecified Qualified Code(s): F32.9 - Major depressive disorder, single episode, unspecified (3) Pulmonary embolism Acute cor pulmonale presence: without acute cor pulmonale Chronicity: acute Pulmonary embolism type: unspecified Qualified Code(s): I26.99 - Other pulmonary embolism without acute cor pulmonale (4) Hypertension Hypertension type: essential hypertension Qualified Code(s): I10 - Essential (primary) hypertension
[2018-07-18] MEDS: NEBIVOLOL HCL 5 MG TAB PO SCH (22:41)
[2018-07-18] MEDS: ESCITALOPRAM OXALATE 10 MG TAB PO SCH (22:42)
[2018-07-18] MEDS: FUROSEMIDE 20 MG TAB PO SCH (22:42)
[2018-07-18] MEDS: CETIRIZINE HCL 10 MG TABLET PO SCH (22:43)
[2018-07-19 07:45] LABS: Partial Thromboplastin Ratio 1.5; Partial Thromboplastin Time 39.3 Seconds (21.0-31.0)
--- NOTE | 2018-07-19 08:40 | History & Physical Bridge Note ---
Date of Service July 19, 2018 History & Physical Bridge Note I have examined the patient, reviewed the History & Physical and in the interval since the performance of the History & Physical I have noted the following changes of clinical significance: no changes noted
[2018-07-19] MEDS: PSYLLIUM 58.6% POWDER PACKET PO SCH (10:40)
--- NOTE | 2018-07-19 11:11 | Anesthesiology Consultation ---
Date of Service July 19, 2018 Assessment & Plan Chart Review Chart Review: Acceptable Risk for Surgery and Patient NOT seen in Pre Admission Testing Consults Requested none ASA ASA3 Proposed Anesthesia Anesthesia Type: General Risk / Benefits Reviewed With: PT / POA / Parent / Guardian, Accepts Plan and Informed Consent Obtained History Surgery Operation Date: 07/19/18 07:50 Proposed Procedures p Endobronchial Ultrasound - Italo Ruiz MD, FACS Height/Weight Height: 1.91 m Weight: 141.2 kg Allergies Allergy/AdvReac Type Severity Reaction Status Date / Time adhesive Allergy Unknown BLISTERS Verified 07/17/18 02:27 cefaclor Allergy Unknown RASH Verified 07/17/18 02:27 moxifloxacin Allergy Unknown "BORDERLINE Verified 07/17/18 02:27 ANAPHYLAXIS" Medications Home Medications Medication Instructions Recorded Confirmed Last Taken Bystolic 10 mg PO QPM 06/04/18 07/17/18 06/20/18 23:00 cetirizine [Zyrtec] 10 mg PO QPM 06/04/18 07/17/18 06/20/18 23:00 escitalopram oxalate [Lexapro] 10 mg PO QPM 06/04/18 07/17/18 06/20/18 23:00 furosemide [Lasix] 20 mg PO QPM 06/04/18 07/17/18 06/20/18 23:00 multivitamin 1 tab PO QPM 06/04/18 07/17/18 06/20/18 23:00 ranitidine HCl 150 mg PO QPM 06/04/18 07/17/18 06/20/18 23:30 Active Medications Generic Name Dose Route Start Last Admin Trade Name Michaelq PRN Reason Stop Dose Admin Acetaminophen 650 mg 07/17/18 05:39 07/17/18 16:14 Tylenol PO 08/16/18 05:38 650 mg Q4H PRN Administration pain/fever Cetirizine HCl 10 mg 07/17/18 21:00 07/18/18 22:43 Zyrtec PO 08/16/18 20:59 10 mg QPM RAMON Administration Escitalopram Oxalate 10 mg 07/17/18 21:00 07/18/18 22:42 Lexapro PO 08/16/18 20:59 10 mg QPM RAMON Administration Furosemide 20 mg 07/17/18 21:00 07/18/18 22:42 Lasix PO 08/16/18 20:59 20 mg QPM RAMON Administration Heparin Sodium/Dextrose 25,000 units in 500 mls @ 0 mls/hr 07/17/18 04:15 07/19/18 06:03 Heparin Sodium/Dextrose IV 08/16/18 04:14 0 units/hr .Q0M RAMON 0 mls/hr Titration Protocol 0 UNITS/HR Nebivolol 10 mg 07/17/18 21:00 07/18/18 22:41 Bystolic PO 08/16/18 20:59 10 mg QPM RAMON Administration Psyllium Hydrophilic Mucilloid 1 pkt 07/18/18 10:00 07/19/18 10:40 Metamucil PO 08/17/18 09:59 Not Given QAM RAMON Ranitidine HCl 150 mg 07/17/18 21:00 07/18/18 22:43 Zantac PO 08/16/18 20:59 150 mg QPM RAMON Administration NPO Date Last Intake of Fluids: 07/18/18 Time Last Intake of Fluids: 23:45 Date Last Intake of Solids: 07/18/18 Time Last Intake of Solids: 18:00 Past Medical History Medical History Asthma Exercise induced. Last used inhaler about 4 months ago No h/o hospitalization or intubation Depression HTN (hypertension) High triglycerides History of kidney stones Idiopathic urticaria Mild asthma EXERCISE INDUCED - RARELY USES PRN INH Osteoarthritis Sleep apnea CPAP Spinal stenosis Tachycardia Exercise / Class Metabolic Activity II 4-5 Yardwork/Stairs/Walk up hill Past Family History Family History Mother Family history of diabetes mellitus Aunt Family history of diabetes mellitus Uncle Family history of diabetes mellitus Grandmother (Maternal) Family history of diabetes mellitus Grandfather (Maternal) Family history of diabetes mellitus Family/Other History of anesthesia reaction NEPHEW - PT UNSURE OF REACTION Past Surgical History Surgical History History of anesthesia reaction PT ASPIRATED DURING LITHOTRIPSY; PROCEDURE TERMINATED EARLY Case started as GA with LMA then pt vomited bile. Pt was incubated and transferred to [facility] from surgery center. History of arthroscopy of left knee History of arthroscopy of right knee History of cataract surgery RT History of colonoscopy History of discectomy C5-6, C6-7 History of lithotripsy History of repair of pyloric stenosis History of surgery RECTAL FISTULA REPAIR History of surgery LT PLANTAR FASCIA RELEASE History of surgery CERVICAL CORPECTOMY History of tonsillectomy and adenoidectomy History of umbilical hernia repair X 2 Hx of fusion of cervical spine C5-C7; DENIES SIGNIFICANT ROM RESTRICTIONS S/P UPPP (uvulopalatopharyngoplasty) Past Anesthesia History No Hx of Anesthesia Complications and No Family Hx of Anesthesia Complications History of PONV No Hx of PONV and No Hx of Motion Sickness Social History Smoking Status: Never smoker Do You Dip or Chew Tobacco: No Hx Alcohol Use: Yes alcohol intake frequency: holidays/special occasions only Hx Substance Use: No substance use type: does not use Review of Systems Respiratory: no change in sputum and no dyspnea Cardiovascular: no chest pain, no chest pain with activity and no dyspnea on exertion Gastrointestinal: no nausea and no vomiting Physical Exam Vital Signs Last Vital Signs Temp 36.6 C 07/19/18 07:58 Pulse 42 L 07/19/18 07:58 Resp 16 07/19/18 07:58 BP 119/74 07/19/18 07:58 Pulse Ox 95 07/19/18 07:58 ENMT Mouth: no TMJ abnormality and no TMJ clicking Thyromental Distance: > or= 3.5 Finger Breadths Mallampati Class: I Neck normal visual inspection and + limited neck extension (Mild limitation with extension) Respiratory Auscultation: lungs clear to auscultation bilaterally Cardiovascular Rate/Rhythm: regular rhythm and + bradycardic (Sinus ariel) Psychiatric Orientation: alert and oriented x 3 Testing Electrocardiogram Date: 07/17/18 Findings: + SB @ (44 bpm) Marked sinus bradycardia Abnormal ECG When compared with ECG of 29-AUG-2015 11:01, Vent. rate has decreased BY 23 BPM Nonspecific T wave abnormality, improved in Inferior leads Nonspecific T wave abnormality now evident in Anterior leads Confirmed by Reuben Lal ([id number]) on 07/17/2018 6:44:43 PM Echocardiogram Date: 02/05/18 EF: 55-60% LV Function: normal RWMA: + none Valvular Disease: + no significant valvular disease Mildly dilated LA Negative for inducible ischemia Hypertensive response to exercise Other Testing CTA 07/17/2018: FINDINGS: The thoracic aorta is normal course and caliber. Pulmonary vasculature demonstrates several second and third order filling defects in the peripheral lung regions bilaterally. No evidence for main central or saddle pulmonary embolus. Moderate mediastinal and hilar adenopathy. Pretracheal nodes measuring up to 1.7 cm. Bilateral hilar nodes measure to 1.6 cm. Subcarinal lymph nodes measure up to 2 cm. Evaluation of the lung parenchyma shows several small scattered nodules. Right base contains a 5 mm nodule right right infrahilar nodule measures 7 mm. Left midlung nodule image 63 measures 5 mm. Several additional 2 to 4 mm nodules are present bilaterally. There are no focal or consolidative infiltrative changes. IMPRESSION: 1. Study is positive for bilateral pulmonary emboli. 2. Moderate mediastinal and hilar adenopathy. 3. Scattered parenchymal nodules as discussed. 4. The mediastinal, hilar, and parenchymal findings should be closely followed to exclude a possibility of a density such as lymphoma Laboratory Results 07/18/18 07:33 07/18/18 07:33 PT 10.7 Seconds (9.0-12.0) 07/17/18 02:17 INR 1.0 (0.9-1.1) 07/17/18 02:17 APTT 39.3 Seconds (21.0-31.0) H 07/19/18 07:15
[2018-07-19] MEDS ORDERED: LIDOCAINE HCL 2% 2 ML VIAL/AMP(20MG/ML) INFIL ONE (11:29)
[2018-07-19] MEDS ORDERED: fentaNYL citrate 100 MCG/2 ML VIAL ONE ×2 (11:29→11:30)
[2018-07-19] MEDS ORDERED: ROCURONIUM BROMIDE 10 MG/ML 5 ML VIAL ONE (11:29)
[2018-07-19] MEDS ORDERED: PROPOFOL IV EMULSION 10 MG/ML 20 ML VIAL IV ONE (11:29)
[2018-07-19] MEDS ORDERED: MIDAZOLAM HCL 1 MG/ML 2ML VIAL ONE (11:29)
[2018-07-19] MEDS ORDERED: ATROPINE SULFATE 0.1 MG/ML 10ML SYR IV PRN (11:54)
[2018-07-19] MEDS ORDERED: PROMETHAZINE HCL 12.5 MG in SODIUM CHLORIDE 0.9% 50 ML IV PRN (11:54)
[2018-07-19] MEDS ORDERED: PHENYLEPHRINE 100MCG/ML 5ML SYR IV PRN (11:54)
[2018-07-19] MEDS ORDERED: fentaNYL citrate 100 MCG/2 ML VIAL IV PRN (11:54)
[2018-07-19] MEDS ORDERED: HYDROmorphone INJ 1 MG/ML SYRINGE IV PRN (11:54)
[2018-07-19] MEDS ORDERED: ePHEDrine sulfate 50 MG/ML AMP IV PRN (11:54)
[2018-07-19] MEDS ORDERED: ONDANSETRON INJ 2 MG/ML 2 ML VIAL IV PRN (11:54)
[2018-07-19] MEDS ORDERED: CLINDAMYCIN PHOS 300 MG/2 ML VIAL ONE (12:18)
[2018-07-19] MEDS ORDERED: DEXAMETHASONE SOD INJ 4 MG/ML VIAL ONE (12:27)
[2018-07-19] MEDS ORDERED: ONDANSETRON INJ 2 MG/ML 2 ML VIAL ONE (12:27)
[2018-07-19] MEDS ORDERED: CLINDAMYCIN PHOS 900 MG/6 ML VIAL IV SCH (12:27)
[2018-07-19] MEDS ORDERED: ePHEDrine sulfate 50 MG/ML AMP ONE (12:32)
[2018-07-19] MEDS ORDERED: GLYCOPYRROLATE 0.2 MG/ML VIAL ONE ×2 (12:32→12:57)
[2018-07-19] MEDS ORDERED: SODIUM CHLORIDE 0.9% INJ 10 ML VIAL ONE (12:32)
--- NOTE | 2018-07-19 12:48 | Post Operative Brief Note ---
Immediate Post Op Note v1 Date of Surgery July 19, 2018 Pre & Post Diagnosis Operation Date: 07/19/18 07:50 Pre-Op Diagnosis: Mediastinal Lymphadenopathy Post-Op Diagnosis: Mediastinal Lymphadenopathy with granulomas Procedure Operation Date: 07/19/18 07:50 Actual Procedures p Endobronchial Ultrasound - Italo Ruiz MD, FACS Surgeon Italo Ruiz MD, FACS Control Room Tender Kriss Kaiser technician support engineer Estimated Blood Loss 2 Findings Consistent with Post-Op Diagnosis
[2018-07-19] MEDS ORDERED: NEOSTIGMINE METHYLSULFATE 5 MG/5 ML SYR ONE (12:57)
--- NOTE | 2018-07-19 13:17 | XRay Report ---
XR chest 1V portable CLINICAL HISTORY: s/p EBUS postoperative evaluation COMPARISON STUDY: 03/19/2018 FINDINGS: No evidence for pneumothorax. Lungs are grossly clear. Minimal atelectasis left base. IMPRESSION: No evidence for postprocedural pneumothorax. The above report was generated using voice recognition software. It may contain grammatical, syntax or spelling errors. Electronically signed by: Kamran Esparza M.D. 07/19/2018 1:16 PM
--- NOTE | 2018-07-19 13:42 | Anesthesiology Progress Note ---
Date of Service July 19, 2018 Anesthesia Post Procedure Vital Signs Vital Signs: Temp Pulse Pulse Pulse Resp BP BP 07/19/18 13:40 36.4 C L 51 L 13 115/65 07/19/18 13:30 46 L 15 114/64 07/19/18 13:20 49 L 13 121/66 07/19/18 13:10 57 L 16 125/73 07/19/18 13:00 36.3 C L 80 14 131/82 07/19/18 11:40 36.7 C 47 L 20 113/65 07/19/18 11:37 36.7 C 44 L 16 110/69 07/19/18 07:58 36.6 C 42 L 16 119/74 07/19/18 07:00 45 L 07/19/18 05:16 49 L 18 123/74 07/18/18 23:29 36.4 C L 46 L 18 126/77 07/18/18 23:10 47 L 18 07/18/18 22:41 49 L 129/76 07/18/18 22:19 51 L 07/18/18 19:53 36.7 C 49 L 17 120/72 07/18/18 16:03 36.6 C 46 L 17 121/70 07/18/18 16:00 57 L Pulse Ox 07/19/18 13:40 98 07/19/18 13:30 92 07/19/18 13:20 100 07/19/18 13:10 100 07/19/18 13:00 100 07/19/18 11:40 98 07/19/18 11:37 96 07/19/18 07:58 95 07/19/18 07:00 07/19/18 05:16 94 07/18/18 23:29 97 07/18/18 23:10 97 07/18/18 22:41 07/18/18 22:19 07/18/18 19:53 97 07/18/18 16:03 94 07/18/18 16:00 Pain Intensity Medial Chest: Pain Intensity: 1 Transfer of Care Handoff Completed per policy Notes Mental Status: alert / awake / arousable Patient Amnestic to Procedure: Yes Nausea / Vomiting: adequately controlled Pain: adequately controlled Airway Patency, RR, SpO2: stable & adequate BP & HR: stable & adequate Hydration State: stable & adequate Anesthetic Complications: no major complications apparent Notes: Awake, doing well, VSS. Will require O2 via NC to maintain sat >93%
--- NOTE | 2018-07-19 13:42 | Operative Report ---
DATE OF OPERATION: 07/19/2018 PREOPERATIVE DIAGNOSES: 1. Mediastinal adenopathy. 2. History of pulmonary embolism from deep vein thromboses. POSTOPERATIVE DIAGNOSES: 1. Granulomatous lymphadenopathy, mediastinum. 2. History of pulmonary embolism from deep vein thromboses. PROCEDURE: Endobronchial ultrasound with biopsy. SURGEON: Italo Ruiz MD. HAMMERER HELPER: Gina Kaiser RRT. ANESTHESIA: General anesthesia with endotracheal intubation. INDICATION FOR THE PROCEDURE AND FINDINGS: Jamel Walker is a 47-year-old male with multiple issues actually. 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 I was asked to see Jamel. A CT scan of his chest was performed and he had some chest pain, which showed marked mediastinal adenopathy, which was rather diffuse. I had a long talk about this with Jamel over the weekend, we elected to proceed today on Thursday07/19/2018 with endobronchial ultrasound. On 07/19/2018, Mr. Walker underwent an uncomplicated endobronchial ultrasound with biopsy. As expected, the lymph nodes were very large. We biopsied the level 7 node several times as well as the left level 11 and right level 4 and got a good lymph tissue back on these biopsies. I sent some for cytology as well as some for micro. We did see granulomas. We had negligible blood loss. He tolerated it well. PROCEDURE DESCRIPTION: The patient was brought to the operating room and laid in supine position. General anesthesia was induced and endotracheal intubation was performed. After appropriate timeout had been called, prophylactic antibiotics were given. An endobronchial ultrasound scope was placed through an adapter into the endotracheal tube. Upon coming down, I saw no endobronchial lesions going out to the tertiary airways. Really had very little in the way of even any sputum. I immediately went to the level 7 and biopsied this several times. We got lymphatic tissue with granulomas on these biopsies. Attention was then turned towards the right level 4 and again we had good-sized lymph nodes and again we got lymphatic tissue; however, interestingly enough, we did not see granulomas on the right level 4. I then went over to left level 11, which were large also. I biopsied these several times and we did get good lymphatic and good tissue bites with lymphocytes and we did see granulomas. Appropriate cultures were sent separately. He tolerated it quite well. We really got into no bleeding. It should be noted that I did these biopsies with a 25 gauge biopsy needle. This was a fine needle biopsy and not a fine needle aspiration. He tolerated it well. I attest to the content of the Intraoperative Record and any orders documented therein. Any exception s are noted below.
--- NOTE | 2018-07-19 16:20 | Hospitalist Progress Note ---
Date of Service July 19, 2018 Assessment & Plan (1) Pulmonary embolism: Patient with occlusive thrombus of peritoneal and posterior tibial veins as well as multifocal distal pulmonary emboli. He is hemodynamically stable, no respiratory distress, adequate oxygenation on room air, no evidence of right heart strain on EKG or CT. No prior DVT/PE. No trauma or immobility. Patient had cataract surgery performed prior to leg swelling, however, not sure I would definitively call this a "provoked" DVT. Patient has lymphadenopathy in the chest as well as in the femoral area as well, suggested to be reactive. This may be the case, however, concerning for malignancy in setting of a new DVT/PE, anemia. Patient does not endorse any Type B symptoms of malignancy. initially treated with heparin drip this was stopped for EBUS today with biopsies started on Xarelto 15mg BID this afternoon, plan for 21 days then 20mg daily vitals stable, no dyspnea, no chest pain, he feels well enough to go home (2) Lymphadenopathy: As mentioned above, patient with mediastinal and hilar adenopathy noted in chest as well as femoral. May be reactive, however, concern for malignancy in setting of new DVT/PE EBUS with several biopsies on 07/19, tolerated well, no bleeding, no dyspnea afterwards initial impression was for granulomatous tissue on biopsies, but final pathology will likely be pending on discharge he will follow up with Dr. Ruiz in the office (3) Anemia: Patient with normochromic/normocytic anemia, Hg of 13.9, Hct of 40.3. This is slightly down from prior values of 14.2 and 42.9, respectively on 12/18/17. No active bleeding (4) Hypertension: Blood pressure well controlled on current medication regimen. Patient is bradycardic at baseline on Bystolic. Denies dizziness, syncope, confusion. -Continue Bystolic -Continue Lasix -Continue to monitor (5) Depression: Chronic. Stable -Continue Lexapro (6) BRICE on CPAP: CPAP qHS F/E/N - Heplock. Monitor electroltyes and replete as needed, regular diet as tolerated plan for d/c to home tomorrow morning Subjective patient seen after his EBUS and biopsies discussed with Dr. Ruiz, several biopsies taken from different LN at several stations some with normal lymphatic tissue and others with granulomatous changes awaiting final pathology Dr. Ruiz recommends starting Xarelto this evening for PE patient still a little lethargic from anesthesia labs reviewed, stable chart reviewed since admission Review of Systems Review of Systems: All systems reviewed & are unremarkable except as noted in HPI & below Respiratory: + dyspnea on exertion; no cough and no dyspnea Cardiovascular: no chest pain and no edema Gastrointestinal: no abdominal pain, no nausea, no vomiting, no constipation and no diarrhea/loose stools Physical Exam Constitutional: WD/WN, vitals as above Eyes: PERRL, conjunctivae normal, anicteric sclerae ENMT: external ear and nose normal, oropharynx normal Neck: trachea midline, no thyromegaly Respiratory: normal respiratory effort, lungs clear to auscultation Cardiovascular: RRR, no murmur, no edema Gastrointestinal (Abdomen): normal bowel sounds, soft, nontender, no hepatosplenomegaly Musculoskeletal: no cyanosis or clubbing, extremities motor strength 5/5 Skin: no rashes, warm and dry Neurologic: patellar DTR's 2+ bilat, sensation intact and PERRL, EOMI, accommodation nl, no face palsy, no dysarthria Psychiatric: A+Ox3, euthymic affect Lymphatic: no cervical or axillary lymphadenopathy Results & Data Vital Signs (Past 12 Hours) Vital Signs Temp Pulse Pulse Pulse Resp BP BP 07/19/18 15:30 37.0 C 54 L 18 112/68 07/19/18 15:03 36.5 C 50 L 16 119/74 07/19/18 14:49 36.9 C 51 L 18 109/63 07/19/18 14:00 36.6 C 49 L 14 116/68 07/19/18 13:40 36.4 C L 51 L 13 115/65 07/19/18 13:30 46 L 15 114/64 07/19/18 13:20 49 L 13 121/66 07/19/18 13:10 57 L 16 125/73 07/19/18 13:00 36.3 C L 80 14 131/82 07/19/18 11:40 36.7 C 47 L 20 113/65 07/19/18 11:37 36.7 C 44 L 16 110/69 07/19/18 07:58 36.6 C 42 L 16 119/74 07/19/18 07:00 45 L 07/19/18 05:16 49 L 18 123/74 Pulse Ox 07/19/18 15:30 94 07/19/18 15:03 93 07/19/18 14:49 92 07/19/18 14:00 95 07/19/18 13:40 98 07/19/18 13:30 92 07/19/18 13:20 100 07/19/18 13:10 100 07/19/18 13:00 100 07/19/18 11:40 98 07/19/18 11:37 96 07/19/18 07:58 95 07/19/18 07:00 07/19/18 05:16 94 Laboratory Results Laboratory Results - last 24 hr 07/17/18 07/19/18 04:37 07:15 APTT 39.3 H PTT Ratio 1.5 Homocysteine 11.4 H Medications Administered Current Inpatient Medications Acetaminophen (Tylenol) 650 mg PO Q4H PRN PRN Reason: pain/fever Stop: 08/16/18 05:38 Last Admin: 07/19/18 16:28 Dose: 650 mg Documented by: Cetirizine HCl (Zyrtec) 10 mg PO QPM [facility] Stop: 08/16/18 20:59 Last Admin: 07/19/18 21:33 Dose: 10 mg Documented by: Escitalopram Oxalate (Lexapro) 10 mg PO QPM [facility] Stop: 08/16/18 20:59 Last Admin: 07/19/18 21:33 Dose: 10 mg Documented by: Furosemide (Lasix) 20 mg PO QPM RAMON Stop: 08/16/18 20:59 Last Admin: 07/19/18 21:35 Dose: 20 mg Documented by: Nebivolol (Bystolic) 10 mg PO QPM [facility] Stop: 08/16/18 20:59 Last Admin: 07/19/18 21:34 Dose: 10 mg Documented by: Psyllium Hydrophilic Mucilloid (Metamucil) 1 pkt PO QAM [facility] Stop: 08/17/18 09:59 Last Admin: 07/19/18 10:40 Dose: Not Given Documented by: Ranitidine HCl (Zantac) 150 mg PO QPM [facility] Stop: 08/16/18 20:59 Last Admin: 07/19/18 21:33 Dose: 150 mg Documented by: Rivaroxaban (Xarelto) 15 mg PO BID RAMON Stop: 08/09/18 15:29 Last Admin: 07/19/18 21:35 Dose: 15 mg Documented by: (1) Anemia Anemia type: unspecified type Qualified Code(s): D64.9 - Anemia, unspecified (2) Depression Depression Type: unspecified Qualified Code(s): F32.9 - Major depressive disorder, single episode, unspecified (3) Pulmonary embolism Acute cor pulmonale presence: without acute cor pulmonale Chronicity: acute Pulmonary embolism type: unspecified Qualified Code(s): I26.99 - Other pulmonary embolism without acute cor pulmonale (4) Hypertension Hypertension type: essential hypertension Qualified Code(s): I10 - Essential (primary) hypertension
[2018-07-19] MEDS: RIVAROXABAN 15 MG TAB PO SCH ×2 (16:26→21:35)
[2018-07-19] MEDS: ACETAMINOPHEN 325 MG TAB PO PRN (16:28)
[2018-07-19] MEDS ORDERED: RIVAROXABAN 15 MG TAB PO SCH (21:00)
[2018-07-19] MEDS: ESCITALOPRAM OXALATE 10 MG TAB PO SCH (21:33)
[2018-07-19] MEDS: CETIRIZINE HCL 10 MG TABLET PO SCH (21:33)
[2018-07-19] MEDS: NEBIVOLOL HCL 5 MG TAB PO SCH (21:34)
[2018-07-19] MEDS: FUROSEMIDE 20 MG TAB PO SCH (21:35)
[2018-07-20 06:35] LABS: Hematocrit (blood only) 42.3 % (42-52); Hemoglobin 14.6 g/dL (14.0-18.0); Mean Corpuscular Hgb Conc 34.5 g/dL (32-36); Mean Corpuscular Volume 84.3 fL (80-100); Mean Platelet Volume 9.6 fL (7.4-10.4); Platelet Count 246 K/uL (130-400); RDW Coefficient of Variation 13.4 % (11.5-14.5); RDW Standard Deviation 40.3 fL (36.4-46.3); Red Blood Count 5.02 M/uL (4.7-6.1); White Blood Count 14.35 K/uL (4.8-10.8)
[2018-07-20 07:13] LABS: Calcium 8.8 mg/dl (8.5-10.1); Creatinine Clr Calc Pharmacy 115.8 ml/min; Est GFR (African American) 84.1; Est GFR (Non-African American) 72.5; Potassium 4.2 mmol/L (3.5-5.1)
[2018-07-20] MEDS: RIVAROXABAN 15 MG TAB PO SCH (09:27)
[2018-07-20] MEDS: PSYLLIUM 58.6% POWDER PACKET PO SCH (09:27)
[2018-07-21 22:49] LABS: Anti Cardiolipin Ab IgG <14 GPL (< = 14); Anti Cardiolipin Ab IgM <12 MPL (< = 12); Anti-Thrombin III Activity 106 % activity (80-120); B2 Glycoprotein IgA <9 SAU (<=20); B2 Glycoprotein IgG <9 SGU (<=20); B2 Glycoprotein IgM <9 SMU (<=20); Lupus Anticoagulant Negative (Negative); Protein S Functional(Activity) 89 % (70-150)
--- NOTE | 2018-07-22 09:05 | Discharge Summary ---
Date of Service July 20, 2018 Admission HPI Per Admitting Provider 47yo C male presenting with bilateral PEs. Patient had cataract surgery in mid June. Shortly after he began experiencing pain in the left posterior calf with associated leg swelling. He had a d-dimer performed today which was positive at 2320. He has some mild chest discomfort and has noted more dyspnea with exertion lately. No dizziness/syncope/palpitations. Patient took 364mg of ASA during the course of the day. No additional complaints at this time. No history of prior clots ER Course: Heparin bolus and gtt Principal Diagnosis Bilateral pulmonary emboli Discharge Exam Constitutional WD/WN, vitals as above Eyes PERRL, conjunctivae normal, anicteric sclerae ENMT external ear and nose normal, oropharynx normal Neck trachea midline, no thyromegaly Respiratory normal respiratory effort, lungs clear to auscultation Cardiovascular RRR, no murmur, no edema Gastrointestinal (Abdomen) normal bowel sounds, soft, nontender, no hepatosplenomegaly Musculoskeletal no cyanosis or clubbing, extremities motor strength 5/5 Skin no rashes, warm and dry Neurologic patellar DTR's 2+ bilat, sensation intact and PERRL, EOMI, accommodation nl, no face palsy, no dysarthria Psychiatric A+Ox3, euthymic affect Lymphatic no cervical or axillary lymphadenopathy Discharge Data Allergies Allergy/AdvReac Type Severity Reaction Status Date / Time adhesive Allergy Unknown BLISTERS Verified 07/20/18 23:27 cefaclor Allergy Unknown RASH Verified 07/20/18 23:27 moxifloxacin Allergy Unknown "BORDERLINE Verified 07/20/18 23:27 ANAPHYLAXIS" Consultations 07/17/18 03:32 ED Decision to Admit Stat 07/17/18 05:39 Consult Case Management - Discharge Planning Routine 07/17/18 11:09 Consult Thoracic Surgery Routine Procedures Performed Operation Date: 07/19/18 07:50 Actual Procedures p Endobronchial Ultrasound - Italo Ruiz MD, FACS Ordered Studies 07/17/18 02:05 US venous doppler LE BI Urgent 07/17/18 02:06 CT angio chest PE protocol Urgent Hospital Course (1) Pulmonary embolism: Patient with occlusive thrombus of peritoneal and posterior tibial veins as well as multifocal distal pulmonary emboli. He is hemodynamically stable, no respiratory distress, adequate oxygenation on room air, no evidence of right heart strain on EKG or CT. No prior DVT/PE. No trauma or immobility. Patient had cataract surgery performed prior to leg swelling, however, not sure I would definitively call this a "provoked" DVT. Patient has lymphadenopathy in the chest as well as in the femoral area as well, suggested to be reactive. This may be the case, however, concerning for malignancy in setting of a new DVT/PE, anemia. Patient does not endorse any Type B symptoms of malignancy. initially treated with heparin drip this was stopped for EBUS on 07/19 with biopsies started on Xarelto 15mg BID in afternoon on 07/19, plan for 21 days then 20mg daily vitals stable, no dyspnea, no chest pain, he feels well enough to go home follow up with Dr. Kramer (2) Lymphadenopathy: As mentioned above, patient with mediastinal and hilar adenopathy noted in chest as well as femoral. May be reactive, however, concern for malignancy in setting of new DVT/PE EBUS with several biopsies on 07/19, tolerated well, no bleeding, no dyspnea afterwards initial impression was for granulomatous tissue on biopsies, but final pathology will likely be pending on discharge he will follow up with Dr. Ruiz in the office as well as Dr. Kramer (3) Anemia: Patient with normochromic/normocytic anemia, Hg of 13.9, Hct of 40.3. This is slightly down from prior values of 14.2 and 42.9, respectively on 12/18/17. No active bleeding (4) Hypertension: Blood pressure well controlled on current medication regimen. Patient is bradycardic at baseline on Bystolic. Denies dizziness, syncope, confusion. -Continue Bystolic -Continue Lasix -Continue to monitor (5) Depression: Chronic. Stable -Continue Lexapro (6) BRICE on CPAP: CPAP qHS F/E/N - Heplock. Monitor electroltyes and replete as needed, regular diet as tolerated plan for d/c to home tomorrow morning Total Time Total Time Spent Total Time Spent (In Minutes): 31 minutes Total Time Includes: Examination of the Patient, Discharge Planning, Medication Reconciliation and Communication With Other Providers (discussion with other providers) Discharge Plan Discharge Items Patient Disposition: Home - Self-Care Reason For Visit: PE Discharge Diagnosis: Pulmonary embolism Mediastinal and hilar adenopathy, s/p EBUS with biopsies Condition: Good Discharge Goals: Diagnostic testing and Improve disease control Activity: Resume your previous activity Non-emergency contact: Primary Care Provider and Surgeon Call non-emergency contact if: you have any medication questions, your symptoms worsen, your pain is not controlled and you have a fever Follow-up/Referrals: Destin Kramer MD [Primary Care Provider] - Diet: Regular Addtl Provider Instructions: Medications: - XARELTO: take 15mg twice a day for 21 days then 20mg daily there after Pulmonary embolism and DVT in left leg will treat with Xarelto 15mg BID and then 20mg hypercoagulable work up sent out, follow up in the office vitals stable Hilar lymphadenopathy: EBUS with biopsies on 07/19 initial impression was granulomatous disease follow up final pathology with Dr. Ruiz in the office in a week Prescriptions: New Xarelto 15 mg Tablet 15 mg PO BID 21 Days Qty: 42 RF: 0 Xarelto 20 mg tablet 20 mg PO DAILY Qty: 30 RF: 3 amoxicillin-pot clavulanate 875-125 mg tablet 1 tab PO Q12H Qty: 14 RF: 0 Continued multivitamin Tablet 1 tab PO QPM RF: 0 cetirizine [Zyrtec] 10 mg Tablet 10 mg PO QPM RF: 0 ranitidine HCl 150 mg Tablet 150 mg PO QPM RF: 0 furosemide [Lasix] 20 mg Tablet 20 mg PO QPM RF: 0 escitalopram oxalate [Lexapro] 10 mg Tablet 10 mg PO QPM RF: 0 Bystolic 10 mg Tablet 10 mg PO QPM RF: 0 Stand-Alone Forms: [facility]/Other Patient Handouts: Rivaroxaban Oral tablet Rivaroxaban Oral tablet, DVT Complications, Embolism Pulmonary, Embolism Pulmonary Dc Discharge Orders: Discharge Order (Routine); Ordered 07/20/18 Ordered By: Efren Bennett Admission Data Admit Date/Time: 07/17/18 04:09 Attending Provider: Efren Bennett Admit Provider: Magalis Almodovar Primary Care Provider: Destin Kramer Other Providers: Magalis Almodovar ; Italo Ruiz Service: Telemetry Medical Other Interventions: Discharge Summary Assessment (RN) Last Done: 07/20/18 08:50 DC Date/Time DO NOT enter until pt leaves facility: 07/20/18 11:14
== END 2018-07-20 11:14 | disposition home or self-care (01) | DRG 299 ==
LOC: ED 01:49 → 2N 04:09 → SUATTDRO 04:09 → 2N 04:54

== ENCOUNTER 2021-12-25 05:21 | Observation (INO) ==
--- NOTE | 2021-12-02 10:43 | PAT Medication Instructions ---
Medication Instructions Date of Service December 02, 2021 Home Medications Medication Instructions Recorded CPAP Machine #1 ea 11/19/18 albuterol sulfate 90 mcg/actuation 2 puffs inhalation Q6H PRN 07/08/19 aerosol inhaler shortness of breath or wheezing #18 grams hydroxychloroquine 200 mg tablet 200 mg PO BID #180 tabs 09/06/20 (Plaquenil) metformin 500 mg tablet 500 mg PO BID #180 tabs 10/22/21 cetirizine 10 mg tablet (Zyrtec) 10 mg PO HS multivitamin 1 tab PO HS famotidine 20 mg tablet (Pepcid) 20 mg PO QAM albuterol sulfate 90 mcg/actuation aerosol inhaler 2 puffs inhalation Q6H PRN shortness of breath or wheezing ipratropium 0.5 mg-albuterol 3 mg (2.5 mg base)/3 mL nebulization soln 3 ml inhalation Q4H PRN Shortness Of Breath hydroxychloroquine 200 mg tablet (Plaquenil) 200 mg PO BID metformin 500 mg tablet 500 mg PO BID chlorthalidone 50 mg tablet 50 mg PO HS duloxetine 60 mg capsule,delayed release (Cymbalta) 60 mg PO HS fenofibrate nanocrystallized 145 mg tablet 145 mg PO QAM nebivolol 10 mg tablet (Bystolic) 10 mg PO HS ASK your prescriber and surgeon hydroxychloroquine 200 mg tablet (Plaquenil) 200 mg PO BID STOP taking 48 hours before surgery fenofibrate nanocrystallized 145 mg tablet 145 mg PO QAM DO NOT take the morning of surgery metformin 500 mg tablet 500 mg PO BID Take morning of surgery With a small sip of water, OTHERWISE NOTHING TO EAT OR DRINK AFTER MIDNIGHT: famotidine 20 mg tablet (Pepcid) 20 mg PO QAM albuterol sulfate 90 mcg/actuation aerosol inhaler 2 puffs inhalation Q6H PRN shortness of breath or wheezing (use if needed; please bring rescue inhaler with you to hospital day of surgery if possible) ipratropium 0.5 mg-albuterol 3 mg (2.5 mg base)/3 mL nebulization soln 3 ml inhalation Q4H PRN Shortness Of Breath (if needed) Take evening before surgery cetirizine 10 mg tablet (Zyrtec) 10 mg PO HS multivitamin 1 tab PO HS albuterol sulfate 90 mcg/actuation aerosol inhaler 2 puffs inhalation Q6H PRN shortness of breath or wheezing (if needed) ipratropium 0.5 mg-albuterol 3 mg (2.5 mg base)/3 mL nebulization soln 3 ml inhalation Q4H PRN Shortness Of Breath (if needed) metformin 500 mg tablet 500 mg PO BID chlorthalidone 50 mg tablet 50 mg PO HS duloxetine 60 mg capsule,delayed release (Cymbalta) 60 mg PO HS nebivolol 10 mg tablet (Bystolic) 10 mg PO HS Other Notes If you have any questions please call us at [phone] or [phone] or [phone] or [phone]
--- NOTE | 2021-12-05 15:37 | Anesthesiology Consultation ---
Date of Service December 05, 2021 Assessment & Plan (1) Encounter for pre-operative examination: - Preop EKG: Preop EKG done 12/05/[address]/TWA, consider anterolateral ischemia. EKG forwarded to PCP. Awaiting preop EKG response as well as surgeon-ordered PCP clearance (pt seen by Dr. Marin/CAYLA 11/04)- note still in draft. - COVID screening: Per assessment on 12/05: No known COVID-19 positive contacts or current COVID-19 related symptoms. Travel screen negative. Patient vaccinated. At surgeon discretion if preop Covid testing being done. - Check BSG AM DOS - Outpatient joint assessment: Pt currently scheduled for inpatient pathway. If surgeon requests review for outpatient joint pathway, patient is not recommended candidate for outpatient joint program from anesthesia standpoint. - Preop labs: Potassium borderline low at 3.2 and creatinine borderline elevated at 1.48. Will recheck BMP AM DOS. - Hx anesthesia/surgery complication: Aspiration during litho (procedure terminated early due to this) - Case started as GA with LMA then pt vomited bile. Pt was intubated and transferred to [facility] from surgery center - Hx glidescope intubation: EBUS (07/19/18): Grade view 1 with glidescope #4, ETT 8.5 at [facility]. "RSI with mod difficult glidescope secondary to large arytenoids and secretions.. atraumatic" No issues noted per post-op anesthesia progress note. - Family hx of malignant hyperthermia: Nephew (Sister's son) dx 10+ years ago with MH. Pt had EBUS at [facility] under GA 07/2018- does not appear we had known of family hx of MH and does not appear MH precautions were used- no issues per post-op anesthesia progress note. Case reviewed with Dr. Livingston. Given new information of family hx of MH, will treat with MH precautions (OR made aware). Chart Review Chart Review: Patient seen in Pre Admission Testing Teaching & Discussion Pre-Anesthesia Teaching/Discussion Notes: Instructed NPO after midnight before surgery,except medications with 15 cc of water. Medication instructions provided according to the PAT guidelines. History Surgery Operation Date: 12/25/21 08:50 Proposed Procedures p Right Partial Knee Replacement - Christopher Galloway MD Height/Weight Height: 6 ft 3 in Weight: 140.3 kg Allergies Allergy/AdvReac Type Severity Reaction Status Date / Time adhesive Allergy Unknown Blistering Verified 12/05/21 15:23 cefaclor Allergy Unknown Rash Verified 12/05/21 15:23 latex Allergy Unknown Hands Verified 12/05/21 15:23 redness (with glove use for long period) moxifloxacin Allergy Unknown "Borderline Verified 12/05/21 15:23 anaphylaxis" Medications Home Medications Medication Instructions Recorded Confirmed Last Taken cetirizine 10 mg tablet (Zyrtec) 10 mg PO HS 06/04/18 11/29/21 06/20/18 23:00 multivitamin 1 tab PO HS 06/04/18 11/29/21 06/20/18 23:00 CPAP Machine #1 ea 11/19/18 11/04/21 Unknown famotidine 20 mg tablet (Pepcid) 20 mg PO QAM 02/24/19 11/29/21 Unknown albuterol sulfate 90 mcg/actuation 2 puffs inhalation Q6H PRN 07/08/19 11/29/21 Unknown aerosol inhaler shortness of breath or wheezing #18 grams ipratropium 0.5 mg-albuterol 3 mg 3 ml inhalation Q4H PRN Shortness 08/19/19 11/29/21 Unknown (2.5 mg base)/3 mL nebulization Of Breath soln hydroxychloroquine 200 mg tablet 200 mg PO BID #180 tabs 09/06/20 11/29/21 Unknown (Plaquenil) metformin 500 mg tablet 500 mg PO BID #180 tabs 10/22/21 11/29/21 Unknown chlorthalidone 50 mg tablet 50 mg PO HS 11/29/21 11/29/21 Unknown duloxetine 60 mg capsule,delayed 60 mg PO HS 11/29/21 11/29/21 Unknown release (Cymbalta) fenofibrate nanocrystallized 145 145 mg PO QAM 11/29/21 11/29/21 Unknown mg tablet nebivolol 10 mg tablet (Bystolic) 10 mg PO HS 11/29/21 11/29/21 Unknown Past Medical History Medical History (Updated 12/05/21 @ 16:11 by Yue Concepcion) Asthma Exercise induced Stable Depression Diabetes mellitus, type 2 oral meds High triglycerides History of COVID-19 01/2020, loss taste/smell has not completely recovered History of kidney stones HTN (hypertension) Hx of sarcoidosis Previously evaluated by Dr. Kramer, advised f/u PRN > management to be done by PCP per pt, no recent issues Idiopathic urticaria No recent issues while on antihistamine/H2 crissy Obesity Osteoarthritis Pulmonary embolism 2018 Sleep apnea CPAP (compliant) Spinal stenosis Spondylosis of lumbar spine Tachycardia Controlled on beta crissy Exercise / Class Metabolic Activity II 4-5 Yardwork/Stairs/Walk up hill (one FS (no CP, no SOB)) Past Family History Family History Mother Family history of diabetes mellitus Breast cancer Stroke Hypertension Dementia Aunt Family history of diabetes mellitus Uncle Family history of diabetes mellitus Grandmother (Maternal) Family history of diabetes mellitus Grandfather (Maternal) Family history of diabetes mellitus Family/Other History of anesthesia reaction NEPHEW - PT UNSURE OF REACTION Brother Myocardial infarction Hypertension Asthma Father Prostate cancer Denies family history of Ovarian cancer Lung cancer Colorectal cancer Past Surgical History Surgical History Family history of malignant hyperthermia Nephew (Sister's son) dx 10+ years ago Pt had EBUS at [facility] under GA 07/2018- does not appear we had known of family hx of MH and does not appear MH precautions were used- no issues per post-op anesthesia progress note* History of anesthesia reaction Aspiration during litho (procedure terminated early due to this) - Case started as GA with LMA then pt vomited bile. Pt was intubated and transferred to [facility] from surgery center History of arthroscopy of left knee History of arthroscopy of right knee History of bronchoscopy EBUS (07/19/18): Grade view 1 with glidescope #4, ETT 8.5 at [facility]. "RSI with mod difficult glidescope secondary to large arytenoids and secretions.. atraumatic" No issues noted per post-op anesthesia progress note. History of cataract surgery RT/LT History of colonoscopy History of discectomy C5-6, C6-7 History of lithotripsy History of repair of pyloric stenosis History of surgery RECTAL FISTULA REPAIR History of surgery LT PLANTAR FASCIA RELEASE History of surgery CERVICAL CORPECTOMY History of tonsillectomy and adenoidectomy History of umbilical hernia repair X 2 S/P UPPP (uvulopalatopharyngoplasty) Past Anesthesia History Malignant Hyperthermia (Family hx (nephew)) and Other Aspiration during litho (procedure terminated early due to this) - Case started as GA with LMA then pt vomited bile. Pt was intubated and transferred to [facility] from surgery center- 2012 History of PONV No Hx of PONV and No Hx of Motion Sickness Social History Smoking Status: Never smoker Do You Dip or Chew Tobacco: No Hx Alcohol Use: Yes (Rare) Hx Substance Use: No substance use type: does not use Review of Systems Patient denies chest pain, shortness of breath, dyspnea on exertion, fever, chills, cough, wheezing, palpitations. Physical Exam Vital Signs VITALS BP 106/69 P 50 TEMP 98.3 SP02 98%RA RESP 16 PHYSICAL Decreased cervical extension range of motion. Full TMJ range of motion. TMD 3.5 finger breaths Mallampati Score 1 Dentition: intact Lungs: clear throughout to auscultation Cardiac: regular rate and rhythm, no murmurs noted Spine: normal Carotid arteries: negative bruit Extremities: no edema Lab Results Anesthesia Preop Results Results Anesthesia Widget: WBC 6.86 K/ul (4.8-10.8) 12/05/21 Hgb 13.9 g/dl (14.0-18.0) L 12/05/21 Hct 39.8 % (40.1-51.0) L 12/05/21 Plt 300 K/uL (130-400) 12/05/21 Na 141 mmol/L (136-145) 12/05/21 K 3.2 mmol/L (3.5-5.1) L 12/05/21 Cl 103 mmol/L (98-107) 12/05/21 CO2 30 mmol/L (21-32) 12/05/21 BUN 30 mg/dl (6-23) H 12/05/21 Creat 1.48 mg/dl (0.6-1.4) H 12/05/21 Glucose Level 81 mg/dl (70-99(Fasting)) 12/05/21 PT 11.4 Seconds (9.0-12.0) 12/05/21 PTT 28.2 Seconds (21.0-31.0) 12/05/21 INR 1.1 (0.9-1.1) 12/05/21 TSH 2.011 uIu/ml (0.300-4.500) 12/05/21 HA1c 5.8 % (4.5-5.6) H 12/05/21 Urine Color Yellow 12/05/21 Urine Appearance Clear (Clear) 12/05/21 Urine pH 5.5 (4.5-7.5) 12/05/21 Urine Specific [place] 1.024 (1.000-1.030) 12/05/21 Urine Protein Negative (Negative) 12/05/21 Urine Glucose (UA) Negative (Negative) 12/05/21 Urine Ketones Negative (Negative) 12/05/21 Urine Blood Negative (Negative) 12/05/21 Urine Nitrite Negative (Negative) 12/05/21 Urine Bilirubin Negative (Negative) 12/05/21 Urine Urobilinogen Negative (Negative) 12/05/21 Urine Leukocyte Esterase Negative (Negative) 12/05/21 Blood Type A Positive 12/05/21 Antibody Screen NEGATIVE 12/05/21 Testing Electrocardiogram Date: 12/05/21 Sinus bradycardia at 40 bpm. Low voltage QRS. ST/T wave abnormality, consider anterior lateral ischemia. Nonspecific T wave abnormality in inferior leads. Stress Test Date: 02/10/18 Type: exercise Stress exercise echocardiogram without evidence of inducible ischemia (submaxim al 82% MPHR). Mild LAD. Mild MR. 11.7 METS. EF 55-60%. Other Testing Chest CT (07/19/21) No acute intrathoracic abnormality. There is resolution of the previously described bilateral infectious or inflammatory tree-in-bud nodules. Benign-appearing 3 mm solid nodule of the right upper lobe has decreased in size from 06/07/2020. There are two low suspicion solid pulmonary nodules of the left lung measuring up to 5 mm which appear stable to mildly decreased in size from 2019. These are also likely benign. COVID-19 Risk Screen Screening Information COVID-19 Screen Date: 12/05/21 Exposure 21 Days Family/Household +COVID Last 21 Days: No Exposure 10 Days Any COVID Exposure Last 10 Days: No Symptoms Last 10 Days Experienced COVID Sx Last 10 Days: No + COVID 0-90 Days COVID + in Last 0-90 Days: No
[2021-12-25] MEDS ORDERED: ROPIVACAINE 0.5% HCL/PF 150 MG, BUPIVACAINE 0.75% MPF 20 ML, EPINEPHrine 0.15 MG, Ketor... INFIL SCH (06:00)
[2021-12-25] MEDS ORDERED: LR 500ML BOLUS, THEN 15ML/HR IV SCH (06:00)
[2021-12-25] MEDS ORDERED: LR 60ML/HR IV SCH (06:00)
--- NOTE | 2021-12-25 06:26 | History & Physical Bridge Note ---
Date of Service December 25, 2021 History & Physical Bridge Note I have examined the patient, reviewed the History & Physical and in the interval since the performance of the History & Physical I have noted the following changes of clinical significance: no changes noted
[2021-12-25] MEDS ORDERED: EPINEPHrine INJ 1 MG/ML AMP ONE (06:28)
[2021-12-25] MEDS ORDERED: BUPIVACAINE 0.5 % 5 MG/1 ML PF 10ML VIAL ONE (06:29)
[2021-12-25] MEDS ORDERED: ROPIVACAINE 0.5% 5 MG/ML 30 ML VIAL ONE (06:29)
[2021-12-25] MEDS ORDERED: ORTHO JOINT ANESTHETIC ONE (06:34)
[2021-12-25] MEDS ORDERED: MIDAZOLAM HCL 1 MG/ML 2ML VIAL ONE (06:46)
[2021-12-25] MEDS ORDERED: fentaNYL citrate 100 MCG/2 ML VIAL ONE (06:46)
[2021-12-25] MEDS ORDERED: SUGAMMADEX SODIUM 200 MG/2 ML VIAL IV ONE (06:53)
[2021-12-25] MEDS ORDERED: FLUMAZENIL 0.1 MG/1 ML 10 ML VIAL IV PRN (07:15)
[2021-12-25] MEDS ORDERED: ePHEDrine sulfate 50 MG/ML AMP IV PRN (07:15)
[2021-12-25] MEDS ORDERED: NALOXONE HCL 0.4 MG/1 ML VIAL/CARP IV PRN ×2 (07:15→09:06)
[2021-12-25] MEDS ORDERED: ATROPINE SULFATE 0.1 MG/ML 10ML SYR IV PRN (07:15)
[2021-12-25] MEDS ORDERED: PROMETHAZINE HCL 12.5 MG in SODIUM CHLORIDE 0.9% 50 ML IV PRN (07:15)
[2021-12-25] MEDS ORDERED: fentaNYL citrate 100 MCG/2 ML VIAL IV PRN (07:15)
[2021-12-25] MEDS ORDERED: HYDROmorphone INJ 1 MG/ML SYRINGE IV PRN (07:15)
[2021-12-25] MEDS ORDERED: ONDANSETRON INJ 2 MG/ML 2 ML VIAL IV PRN ×2 (07:15→09:06)
[2021-12-25] MEDS ORDERED: KETAMINE 50 MG/5 ML SYRINGE ONE (07:22)
[2021-12-25] MEDS: TRANEXAMIC ACID 1,000 MG x 1 **For Topical Use TOP SCH ×2 (08:18→08:19)
[2021-12-25] MEDS ORDERED: PROPOFOL IV EMULSION 10 MG/ML 20 ML VIAL IV ONE (08:43)
[2021-12-25] MEDS ORDERED: LIDOCAINE 2% MPF LOCAL 5 ML VIAL INFIL ONE (08:44)
[2021-12-25] MEDS ORDERED: ONDANSETRON INJ 2 MG/ML 2 ML VIAL ONE (08:51)
--- NOTE | 2021-12-25 08:52 | Post Operative Brief Note ---
Immediate Post Op Note v1 Date of Surgery December 25, 2021 Pre & Post Diagnosis Operation Date: 12/25/21 07:00 Pre-Op Diagnosis: Right Knee Advanced Medial Compartment Osteoarthritis Post-Op Diagnosis: Right Knee Advanced Medial Compartment Osteoarthritis I identified the patient and participated in the time-out.: Yes Procedure Operation Date: 12/25/21 07:00 Actual Procedures p Right Partial Medial Knee Replacement(Right) - Christopher Galloway MD Surgeon Christopher Galloway MD Brokerage Manager Bing/dimas Estimated Blood Loss 30 Findings Consistent with Post-Op Diagnosis
[2021-12-25] MEDS ORDERED: HYDROmorphone INJ 0.5 MG/0.5 ML SYR IV PRN (09:06)
[2021-12-25] MEDS ORDERED: METOCLOPRAMIDE HCL INJ 5 MG/ML 2 ML VIAL IV PRN (09:06)
[2021-12-25] MEDS ORDERED: bisacodyL 10 MG SUPP PR PRN (09:06)
[2021-12-25] MEDS ORDERED: ALUMINUM/MAGNESIUM SUSP 30 ML UDC PO PRN (09:06)
[2021-12-25] MEDS ORDERED: oxyCODONE HCL IR 5 MG TAB (IMMEDIATE RELEASE) PO PRN (09:06)
[2021-12-25] MEDS ORDERED: MAGNESIUM HYDROXIDE SUSP 30 ML UDC PO PRN (09:06)
[2021-12-25] MEDS ORDERED: diphenhydrAMINE 50 MG/ML VIAL IV PRN (09:06)
--- NOTE | 2021-12-25 09:06 | Operative Report ---
Post Operative Report Pre & Post Diagnosis Operation Date: 12/25/21 07:00 Pre-Op Diagnosis: Right Knee Advanced Medial Compartment Osteoarthritis Post-Op Diagnosis: Right Knee Advanced Medial Compartment Osteoarthritis I identified the patient and participated in the time-out.: Yes Procedure Operation Date: 12/25/21 07:00 Actual Procedures p Right Partial Medial Knee Replacement(Right) - Christopher Galloway MD Surgeon ELLEN Galloway MD Atomic Process Engineer Bing/diams Estimated Blood Loss 30 Findings Consistent with Post-Op Diagnosis see operative report Specimens see operative report Drains none Complications none Indications This 51-year-old male presented to the office with complaints of persisting right knee pain. He had tried conservative care measures including activity modification, viscosupplementation, arthroscopy, physical therapy, and weight management, without improvement. He elected to proceed with surgical intervention after being educated about potential risks and outcomes. Preoperative imaging was obtained. Description of Procedure Patient was administered a spinal anesthetic and then taken to the operating room where he was given sedation. He was prepped and draped in the usual sterile fashion. Please see Dr. Galloway's operative report for specifics of the procedure. I was present for the entire case from initial patient positioning through final wound closure. Assistance was provided in tissue retraction, hemostasis, trial implant placement, final implant placement, and final wound closure. Patient was taken to the recovery room in satisfactory condition. I attest to the content of the Intraoperative Record and any orders documented therein. Any exceptions are noted below.
[2021-12-25] MEDS ORDERED: TAMSULOSIN HCL 0.4 MG CAP PO PRN (09:12)
[2021-12-25] MEDS ORDERED: SODIUM CHLORIDE 0.9% 1000ML 1,000 ML IV SCH (09:15)
--- NOTE | 2021-12-25 09:20 | Progress Notes ---
SUBJECTIVE: Postop check status post right medial hemiarthroplasty of his knee. At this point in ti nh, his hospital course has been uneventful. He denies chest pain, shortness of breath, fever, chill s, nausea, vomiting, or headache. OBJECTIVE: VITAL SIGNS: Stable. He is afebrile. Neurovascular check is limited by spinal. Wound dressing clean, dry, and intact. IMAGING STUDIES: Postoperative x-rays, AP and lateral looked appropriate. ASSESSMENT: Status post hemiarthroplasty, right knee. Continue with care pathway. Job ID: [id number]
--- NOTE | 2021-12-25 09:45 | Operative Report (OR) ---
DATE OF PROCEDURE: 12/25/2021 SURGEON: Christopher Galloway MD. TAILOR'S AIDE: Dr. Smart. SECOND TAILOR'S AIDE: Toro Keen PA-C. PREOPERATIVE DIAGNOSIS: Osteoarthritis, medial compartment, right knee with varus deformity. POSTOPERATIVE DIAGNOSIS: Osteoarthritis, medial compartment, right knee with varus deformity. OPERATION PERFORMED: Partial knee replacement, medial right knee. PERIOPERATIVE SITUATION: Medically cleared male with intractable knee pain. At this point in time, options were discussed with him regarding leave alone, high tibial osteotomy, or partial knee replace ment medially. He elected for partial knee replacement. Wanted to avoid total knee replacement unti l he got more into his 60s. It was described in detail that these procedures may not last more than 5 years and hopefully we will get him that far before he needs knee replacement. DESCRIPTION OF PROCEDURE: The patient was appropriately identified, site verified, consent verified. Antibiotics were confirmed as being given. The right lower extremity was examined revealing no ACL laxity. Pseudolaxity to varus and valgus stress secondary to medial joint space loss and virtually full range of motion, there was no major flexion contracture and full flexion. Once the knee was prepped and draped in the usual routine fashion, tourniquet was inflated to 300 mmH g after exsanguination of the limb with a rubber Esmarch bandage for a total of 70 minutes. A medial incision was then made. It was the length of the patella and patellar tendon. The full thickness f laps raised. Parapatellar arthrotomy performed. Medial exposure subperiosteally carried out. The m eniscus was excised. The tibial cutting block was then applied and a conservative cut was then made, and then once that was recognized that it was still a bit tight in the flexion gap it was resected a nother 2 mm and then was excellent. The tibia could be sized anywhere from a 4 to a 6, with a 5, sti ll having some anterior overhang, we decided to go with a 4. The extension gap was then placed and then the distal femoral cut made. The femur was sized to 4 and appropriate cutting block made and then the anterior and posterior condylar and chamfer cuts were ma de. The seating holes made, and the trial fit well. The trial reduction revealed good full range of motion and excellent stability. The trial implants were then removed. Baseplate was then applied i n the slot and the drill hole peg made. The wound was then irrigated with Betadine Pulsavac and TXA for 3 minutes and then irrigated one final time and then the permanent cemented in position with care taken to insert the tibia, first with the posterior side seated, first squirt cement anteriorly, the n seated down and then pressed superiorly. The excess cement was removed. The femur was then cement ed into position and then after 12 minutes, the tourniquet deflated. Minor bleeding points controlle d with electrocautery. The cement was removed from the posterior aspect of the knee as much as possi ble as could be seen. The wound was then irrigated one final time. Bleeding points were not excessi ve, blood loss was roughly 30 mL. Bone wax was placed around the superior aspect of the implant where some cancellous bone was present. One final irrigation carried out and then the wound closed with #2 Vicryl, 2-0 Vicryl, and stainless steel clips. Appropriate dressing applied. The patient was trans ferred to recovery room in satisfactory condition, having tolerated the procedure well. SUMMARY OF IMPLANTS: Size 4 right medial femur and 4 x 8 mm all poly tibial tray, right medial, one bag of Palacos G cement. Job ID: [id number]
--- NOTE | 2021-12-25 09:54 | Discharge Summary (DS) ---
DATE OF ADMISSION: 12/25/2021. DATE OF DISCHARGE POTENTIAL: 12/26/2021. CHIEF COMPLAINT: Right knee pain. HISTORY OF PRESENT ILLNESS: Underwent elective hemiarthroplasty medial side of his right knee. Today, hospital course has been uneventful. 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 FAMILY HISTORY: Remarkable for cancer, diabetes, heart disease. SOCIAL HISTORY: Remarkable for fact he is . No tobacco or alcohol use. 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 ALLERGIES: HE HAS ALLERGIES TO CECLOR, BUT TOLERATES OTHER CEPHALOSPORINS. ALSO HAS AN ALLERGY TO AV ELOX AND ADHESIVES. PREADMISSION MEDICATIONS: Include Zyrtec, chlorthalidone, duloxetine, hydroxychloroquine, ibuprofen, Bystolic, orphenadrine, Metamucil, ranitidine, Glucophage, TriCor, and p.r.n. albuterol inhaler. He will be discharged on a blood thinner. We will use Eliquis. REVIEW OF SYSTEMS: Reveals no issues with chest pain, shortness of breath, fever, chills, nausea, vo miting or headache. LABORATORY DATA: Postop x-rays look excellent. ASSESSMENT: Status post hemiarthroplasty/medial partial knee replacement, right knee. He is doing w ell. We will continue with care pathway. Discharge tomorrow. Start his Eliquis tomorrow. Job ID: [id number]
--- NOTE | 2021-12-25 10:14 | Anesthesiology Progress Note ---
Date of Service December 25, 2021 Anesthesia Post Procedure Vital Signs Vital Signs: Temp Pulse Resp BP Pulse Ox O2 Del Method O2 Flow Rate 12/25/21 09:50 36.4 C L 54 L 12 98/50 L 97 Room Air 12/25/21 09:40 55 L 12 107/53 L 94 Room Air 12/25/21 09:30 36.5 C 56 L 16 104/57 L 95 Room Air 12/25/21 09:20 59 L 17 100/50 L 99 Oxymask 4 12/25/21 09:10 60 15 102/57 L 100 Oxymask 4 12/25/21 09:01 36.4 C L 67 12 101/53 L 98 Oxymask 6 12/25/21 06:07 36.8 C 50 L 20 121/67 97 Room Air Pain Intensity Right Knee: Pain Intensity: 0 Transfer of Care Handoff Completed per policy Notes Mental Status: alert / awake / arousable Patient Amnestic to Procedure: Yes Nausea / Vomiting: adequately controlled Pain: adequately controlled Airway Patency, RR, SpO2: stable & adequate BP & HR: stable & adequate Hydration State: stable & adequate Neuraxial Anesthesia: was administered and sensory block is resolving Anesthetic Complications: no major complications apparent
[2021-12-25] MEDS: KETOROLAC TROMETHAMINE 15 MG/ML VIAL IV SCH ×3 (10:34→21:54)
[2021-12-25] MEDS ORDERED: PHARMACY GLYCEMIC MGMT CONSULT PRN (11:29)
[2021-12-25 11:38] LABS: BUN Creatinine Ratio 15.5 (10-20); Calcium 8.8 mg/dl (8.5-10.1); Creatinine Clr Calc Pharmacy 91.8 ml/min; Est GFR (African American) 65.4 ml/min; Est GFR (Non-African American) 56.4 ml/min; Potassium 3.4 mmol/L (3.5-5.1)
--- NOTE | 2021-12-25 11:41 | XRay Report ---
TWO VIEWS RIGHT KNEE CLINICAL HISTORY: Postoperative examination. FINDINGS: AP and crosstable lateral portable views of the right knee are obtained. A hemiarthroplasty in the medial compartment is in near anatomic alignment. No acute fracture is seen. There are expect ed postoperative changes around the knee including skin clips, soft tissue edema, and subcutaneous ga s. IMPRESSION: Expected postoperative changes status post right knee hemiarthroplasty. No acute fracture is seen. ACT 112: Negative or not required by law. Electronically signed by: Louie Pleitez M.D. 12/25/2021 11:40 AM
[2021-12-25] MEDS ORDERED: GLUCAGON FOR INJ 1 MG VIAL SQ PRN (12:00)
[2021-12-25] MEDS ORDERED: DEXTROSE 50% 50 ML SYRINGE IV PRN (12:00)
[2021-12-25] MEDS ORDERED: CARBOHYDRATES FOR HYPOGLYCEMIA PO PRN (12:00)
[2021-12-25] MEDS ORDERED: GLUCOSE 10 TAB/TUBE PO PRN (12:00)
[2021-12-25] MEDS ORDERED: GLUCOSE 40% GEL 15 GM TUBE PO PRN (12:00)
[2021-12-25] MEDS: INSULIN ASPART PER UNIT SC SCH ×3 (12:50→20:52)
[2021-12-25] MEDS: ACETAMINOPHEN 500 MG TAB PO SCH ×2 (13:59→21:21)
[2021-12-25] MEDS: ceFAZolin 2000MG 2,000 MG/15 ML SYR IV SCH ×2 (15:24→23:34)
[2021-12-25] MEDS: FERROUS GLUCONATE 324 MG TAB PO SCH (17:21)
[2021-12-25] MEDS: ASCORBIC ACID 500 MG TAB PO SCH (17:21)
[2021-12-25] MEDS ORDERED: SENNA 8.6 MG TAB PO SCH (21:00)
[2021-12-25] MEDS: DOCUSATE SODIUM 100 MG CAP PO SCH (21:20)
[2021-12-26] MEDS: KETOROLAC TROMETHAMINE 15 MG/ML VIAL IV SCH (03:24)
[2021-12-26] MEDS: ACETAMINOPHEN 500 MG TAB PO SCH (06:13)
[2021-12-26 06:25] LABS: Hematocrit (blood only) 36.8 % (40.1-51.0); Hemoglobin 12.9 g/dl (14.0-18.0); Mean Corpuscular Hemoglobin 28.5 pg (25.0-34.0); Mean Corpuscular Hgb Conc 35.1 g/dL (32.0-36.0); Mean Corpuscular Volume 81.2 fL (80.0-100.0); Mean Platelet Volume 9.6 fL (9.4-12.4); Platelet Count 264 K/uL (130-400); RDW Coefficient of Variation 12.9 % (11.5-14.5); RDW Standard Deviation 37.7 fL (36.4-46.3); Red Blood Count 4.53 M/uL (4.63-6.08); White Blood Count 11.89 K/ul (4.8-10.8)
[2021-12-26 06:57] LABS: BUN Creatinine Ratio 17.3 (10-20); Creatinine Clr Calc Pharmacy 93.8 ml/min; Est GFR (African American) 67.1 ml/min; Est GFR (Non-African American) 57.9 ml/min; Potassium 3.3 mmol/L (3.5-5.1)
--- NOTE | 2021-12-26 07:03 | Progress Notes ---
DATE OF SERVICE: 12/26/2021 SUBJECTIVE: Doing well status post right knee partial replacement medially. Denies chest pain, shor tness of breath, fever, chills, nausea, vomiting or headache. OBJECTIVE: VITAL SIGNS: Stable. He is afebrile. Neurovascular check of femoral sciatic nerve is normal. LABORATORIES: A.m. labs reveal hematocrit to be 36.8. Glucose 107. Everything else is pending. ASSESSMENT AND PLAN: Doing well. Discharge to home today. He prefers Pradaxa for his anticoagulati on that I will start today. Follow up in 2 weeks for staple removal. Job ID: [id number]
[2021-12-26] MEDS ORDERED: RIVAROXABAN 10 MG TABLET PO SCH (09:00)
[2021-12-26] MEDS ORDERED: MULTIVITAMIN TAB PO SCH (09:00)
--- NOTE | 2021-12-26 09:22 | Orthopedic Progress Note ---
Date of Service December 26, 2021 Assessment & Plan (1) History of prosthetic unicompartmental arthroplasty of right knee: Plan: PT/OT Ice with easy wrap New dressing applied this morning Immobilizer use for the first 48 hours postoperatively Weightbearing as tolerated with walker assistance DVT prophylaxis with his Xarelto and CARLOS stockings Pain control with p.o. medication Plan is to discharge home later this morning with in-home physical therapy Follow-up at [facility] orthopedics as previously scheduled. With questions contact clinic at [phone] Admission and Anticipated Discharge Date Admission Date: December 25, 2021 Subjective This 51-year-old male is day 1 status post right partial knee replacements of the medial femoral condyle. Patient states he is doing very well. He states his pain is well controlled with the p.o. pain medication. He states that he has been able to get up on his walker and ambulate from his bed to the bathroom without difficulty or assistance. Patient denies chest pain, shortness of breath, fever, chills, sweats, lethargy, numbness or tingling in his right lower extremity. He also denies nausea, vomiting or difficulty voiding. He anticipates him being discharged home later today with in-home physical therapy. Review of Systems Review of Systems: All systems reviewed & are unremarkable except as noted in Subjective Physical Exam Physical Exam: Right knee: Surgical incision site is closed completely with sandi intact. There is no appreciable drainage. There is some mild edema and ecchymosis over the anterior aspect of the knee. Patient is able to easily perform a straight leg raise test. He is able to actively dorsi and plantarflex his foot without issue. Active knee range of motion is from 0 to 90 degrees. His calf is soft and supple nontender to palpation. Quad strength is 3+ out of 5. Peripheral pulses are 2+. Capillary fill is less than 2 seconds. Patient is neurovascularly intact in the right lower extremity. Results & Data ([facility]) Vital Signs (Past 12 Hours) Vital Signs Temp Pulse Resp BP BP Pulse Ox O2 Del Method 12/26/21 07:43 36.4 C L 51 L 18 107/70 96 Room Air 12/26/21 03:26 36.6 C 58 L 14 109/74 96 Room Air 12/25/21 23:00 36.8 C 53 L 20 105/64 97 Room Air Diagnostic Findings Laboratory Results WBC 11.89 K/ul (4.8-10.8) H 12/26/21 06:09 RBC 4.53 M/uL (4.63-6.08) L 12/26/21 06:09 Hgb 12.9 g/dl (14.0-18.0) L 12/26/21 06:09 Hct 36.8 % (40.1-51.0) L 12/26/21 06:09 MCV 81.2 fL (80.0-100.0) 12/26/21 06:09 MCH 28.5 pg (25.0-34.0) 12/26/21 06:09 MCHC 35.1 g/dL (32.0-36.0) 12/26/21 06:09 RDW Std Deviation 37.7 fL (36.4-46.3) 12/26/21 06:09 RDW Coeff of Marcos 12.9 % (11.5-14.5) 12/26/21 06:09 Plt Count 264 K/uL (130-400) 12/26/21 06:09 MPV 9.6 fL (9.4-12.4) 12/26/21 06:09 Sodium 139 mmol/L (136-145) 12/26/21 06:09 Potassium 3.3 mmol/L (3.5-5.1) L 12/26/21 06:09 Chloride 103 mmol/L (98-107) 12/26/21 06:09 Carbon Dioxide 29 mmol/L (21-32) 12/26/21 06:09 Anion Gap 7 (3-11) 12/26/21 06:09 BUN 24 mg/dl (6-23) H 12/26/21 06:09 Creatinine 1.39 mg/dl (0.6-1.4) 12/26/21 06:09 Est Cr Clr Drug Dosing 93.8 ml/min 12/26/21 06:09 Est GFR ( Amer) 67.1 ml/min 12/26/21 06:09 Est GFR (Non-Af Amer) 57.9 ml/min 12/26/21 06:09 BUN/Creatinine Ratio 17.3 (10-20) 12/26/21 06:09 Glucose 112 mg/dl (70-99(Fasting)) H 12/26/21 06:09 POC Glucose 112 mg/dl (70-99) H 12/26/21 08:07 Calcium 9.0 mg/dl (8.5-10.1) 12/26/21 06:09 SARS-CoV-2, RNA, NAAT NEGATIVE (NEGATIVE) 12/25/21 Unknown Impressions Knee X-Ray 12/25/21 08:52 TWO VIEWS RIGHT KNEE CLINICAL HISTORY: Postoperative examination. FINDINGS: AP and crosstable lateral portable views of the right knee are obtained. A hemiarthroplasty in the medial compartment is in near anatomic alignment. No acute fracture is seen. There are expected postoperative changes around the knee including skin clips, soft tissue edema, and subcutaneous gas. IMPRESSION: Expected postoperative changes status post right knee hemiarthroplasty. No acute fracture is seen. ACT 112: Negative or not required by law. Electronically signed by: Louie Pleitez M.D. 12/25/2021 11:40 AM
[2021-12-26] MEDS: FERROUS GLUCONATE 324 MG TAB PO SCH (09:35)
[2021-12-26] MEDS: ASCORBIC ACID 500 MG TAB PO SCH (09:35)
[2021-12-26] MEDS: DOCUSATE SODIUM 100 MG CAP PO SCH (09:36)
[2021-12-26] MEDS: INSULIN ASPART PER UNIT SC SCH (09:38)
== END 2021-12-26 12:13 | disposition home or self-care (01) ==
LOC: 3E 05:21 → ASU 05:21
DX: E66.01 Morbid (severe) obesity due to excess calories; Z91.040 Latex allergy status; Z79.84 Long term (current) use of oral hypoglycemic drugs; M17.11 Unilateral primary osteoarthritis, right knee; Z88.1 Allergy status to other antibiotic agents; Z68.38 Body mass index [BMI] 38.0-38.9, adult; Z79.899 Other long term (current) drug therapy